=== PATIENT | female | born 1945 | race Caucasian/White ===

== ENCOUNTER → 2020-03-30 | Outpatient (CLI) | payer MEDICARE ==
--- NOTE | 2020-03-31 14:00 | ECHOF ---
Referral Reason:R06.02 SOB MEASUREMENTS -------- HEIGHT: 166.4 cm WEIGHT: 59.0 kg BP: 116/59 RVIDd: 2.9 cm (< 3.3) IVSd: 1.0 cm (0.6 - 1.1) LVIDd: 4.4 cm (3.9 - 5.3) LVPWd: 0.9 cm (0.6 - 1.1) IVSs: 1.3 cm LVIDs: 2.8 cm LVPWs: 1.3 cm LA Diam: 3.0 cm (2.7 - 3.8) Ao Diam: 2.9 cm (2.0 - 3.7) AV Cusp: 1.0 cm (1.5 - 2.6) MV EXCURSION: 10.022 mm (> 18.000) MV EF SLOPE: 29 mm/s (70 - 150) EPSS: 0.9 cm MV E Anderson: 0.83 m/s MV DecT: 298 ms MV A Anderson: 1.01 m/s MV E/A Ratio: 0.82 AV maxP.72 mmHg AV meanP.13 mmHg FINDINGS -------- This was a technically adequate study. The left ventricular size is normal. Left ventricular wall thickness is normal. Overall left vent ricular systolic function is normal with, an EF between 60 - 65 %. The right ventricle is normal in size. The left atrial size is normal. The right atrium is normal in size. Interatrial and interventricular septum intact. There is mild aortic valve sclerosis. Peak/mean gradient across the Aortic Valve is 13.72mmHg / 8.1 3mmHg. The mitral valve leaflets are mildly thickened. Mild mitral annular calcification present. The tricuspid valve appears structurally normal. There is no pulmonic regurgitation present. The aortic root size is normal. Normal inferior vena cava with normal inspiratory collapse consistent with estimated right atrial pre ssure of 5 mmHg. There is no pericardial effusion. CONCLUSIONS -------- 1. This was a technically adequate study. 2. The left ventricular size is normal. 3. Left ventricular wall thickness is normal. 4. Overall left ventricular systolic function is normal with, an EF between 60 - 65 %. 5. The right ventricle is normal in size. 6. The left atrial size is normal. 7. The right atrium is normal in size. 8. Interatrial and interventricular septum intact. 9. There is mild aortic valve sclerosis. 10. Peak/mean gradient across the Aortic Valve is 13.72mmHg / 8.13mmHg. 11. The mitral valve leaflets are mildly thickened. 12. Mild mitral annular calcification present. 13. The tricuspid valve appears structurally normal. 14. There is no pulmonic regurgitation present. 15. The aortic root size is normal. 16. Normal inferior vena cava with normal inspiratory collapse consistent with estimated right atrial pressure of 5 mmHg. 17. There is no pericardial effusion. JIG BUILDER: Amy Castillo RDCS
== END | disposition home or self-care (01) ==
LOC: RADECHMAIN 13:43
PROVIDERS: ATTEND Family Medicine
DX: I35.8 Other nonrheumatic aortic valve disorders (principal)
CPT/HCPCS: 93306

== ENCOUNTER → 2021-05-02 | Outpatient (CLI) | payer MEDICARE ==
--- NOTE | 2021-05-05 14:55 | HM ---
HOLTER MONITOR REPORT Date of 1945. INDICATION: Cardiac arrhythmia REFERRING PHYSICIAN: Dr. Shah. The patient was monitored for 24 hours. The rhythm appeared to be sinus mechanism. Minimum heart rate was 67 beats per minute, max 140 and average of 93 beats per minute. Ventricular ectopic events were and seen in less than 1% of the total beats count. Supraventricular ectopic events were seen also in less than 1% of the total beats count. No significant sinus pause or sinus arrest seen. The patient reported no symptoms. CONCLUSION: 1. Sinus rhythm as a baseline mechanism. 2. Rare ventricular ectopic events. 3. Rare supraventricular ectopic events. 4. No evidence of significant sinus pause or sinus arrest. 5. No diary was attached to the study. MMODL / IJN: [id number] /
== END | disposition home or self-care (01) ==
LOC: RADECHMAIN 11:28
PROVIDERS: ATTEND Family Medicine
DX: I49.9 Cardiac arrhythmia, unspecified (principal)
CPT/HCPCS: 93225; 93226

== ENCOUNTER → 2023-01-03 | Outpatient (CLI) | payer MEDICARE ==
--- NOTE | 2023-01-03 14:15 | P.PAINPG ---
PQRS Measure Charge Sheet Comment: HISTORY OF PRESENT ILLNESS: 77 yr old female as a referral from [facility] presents today w severe and chronic LBP secondary to retrolisthesis, DDD, facet arthropathy without myelopathy for evaluation. Pt states pain level is at 8 /10 in intensity, constant, localized in the mid to lower lumbar spine , sharp, achy in character w shooting pain towards the RLE. Pain is provoked by weight bearing activity. Pain is alleviated by medications (anti-inflammatories), topicals, alternating heat and ice occasionally, chiropractic treatments until 2020 which were stopped due to a shoulder injury, up with therapy 4 times weekly which ended in September 2022 as it exacerbated pain, pilates at home, massages monthly, repositioning and rest. PMH: MDD, Hyperlipidemia, GERD, Glaucoma PSH: Vaginal Hysterctomy w BL Salpingo oophorectomy (2014) SH: Negative x 3 FH: Non contributory All: NKDA Meds: See list REVIEW OF ORGAN SYSTEMS: CONSTITUTIONAL: No fevers or chills. No recent weight loss. NEUROLOGICAL: + numbness and tingling along the distal extremities. No seizure disorders or headaches. MUSCULOSKELETAL: + pain PSYCHIATRIC: Denies current depression or suicidal thoughts. Physical Examinations : Constitutional : Cooperative , not in acute distress . Neurologic : Cranial nerve II to XII intact. No focal neurological deficits. Psychiatric : alert & oriented x 3. Matching mood & appropriate affect. Judgment & insight intact. Musculoskeletal : Cervical Spine Motor strength in the deltoid and biceps: Normal right side. Normal Left side Motor strength biceps and the wrist extensors: Normal right side . Normal left side Motor strength in the triceps muscle: Normal right side. Normal left side Deep tendon reflexes: Normal at the biceps. Normal at Brachioradialis. Normal at triceps Vertebral body tenderness to deep palpation over Cervical facet loading test: positive bilaterally Spurling test: positive bilaterally Neck distraction test: positive bilaterally Kartik sign: positive bilaterally Lumbar spine Motor strength lower extremities ,thigh and legs 5/5 Right side , 5/5 Left side Deep tendon reflexes : Normal Knee Jerk. Normal Ankle Jerk Vertebral body tenderness over L4 Lumbar facet Loading Test: positive Right / positive Left Range of motion of the lumbar spine Flexion 30 degrees, extension 10 degrees Straight Leg Raise test: Left/ Right positive at degree Tone test: positive right / positive left. Severe tenderness over the Sacroiliac joint on the Right / Left sides Gaenslen test: positive bilaterally Seated flexion test: positive bilaterally. Sacral spine : Severe tenderness over the Sacroiliac joint: right side / left side Range of motion: Flexion of the lumbar spine <60 degrees Range of motion: Extension of the lumbar spine <20 degrees Gaenslen's Test positive Brian's Test positive Tone test: positive right side / left side Thigh Thrust Test Sacral Thrust Test Imaging: CT without contrast of the lumbar spine from 12/01/22 reviewed Assessment/ Plan : Lumbar DDD Recommendation of FERNANDO L4-L5. May need a series of injections for optimal pain relief. Risks, benefits of procedure discussed and patient verbalized understanding. Admits to aspirin or anti- coagulant use or medical history of diabetes. Protocol for discontinuation/ continuation of medications ho procedu re discussed. All questions answered. I have spent greater than 30 minutes on patient care today. Dr Regalado was available by phone for the evaluation of this patient. The time was used to review the medical records including relevant urine studies and Prescription history (MAPs), review of the available imaging, evaluation and examination of the patient, coordination of care with the medical staff and if applicable referring physicians, as well as creation of the medical record Home Medications: Ambulatory Orders Felodipine [Felodipine ER] 10 mg PO DAILY 11/03/22 Latanoprost/Pf [Latanoprost 0.005% Eye Drop] 1 drop BOTH EYES HS 11/03/22 Multivitamins, Thera [Multivitamin (formulary)] 1 tab PO DAILY 11/03/22 [place]-3 Fatty Acids [[place]-3] 1,000 mg PO DAILY 11/03/22 Simvastatin [Zocor] 20 mg PO HS 11/03/22 Controlled Substance Measures - Controlled Substance Measures Is patient prescribed a controlled substance at discharge?: No
[2023-01-03 15:30] VITALS: BP 143/86; PULSE 81; RESP 18; TEMP 98
== END ==
LOC: PNWHC3 12:19
PROVIDERS: ATTEND Specialist
DX: M47.26 Other spondylosis with radiculopathy, lumbar region (principal); M51.16 Intervertebral disc disorders with radiculopathy, lumbar region; E78.5 Hyperlipidemia, unspecified; K21.9 Gastro-esophageal reflux disease without esophagitis; F32.9 Major depressive disorder, single episode, unspecified; Z87.891 Personal history of nicotine dependence
CPT/HCPCS: 99211

== ENCOUNTER 2023-01-30 11:33 | Day surgery (SDC) | payer MEDICARE ==
[2023-01-25 11:03] VITALS: BMI 21.6
[~2023-01-30 11:33] MED LIST: LACTATED RINGERS 1,000 ML IV SCH; LIDOCAINE 1% (10MG/ML) FOR IV START INTRADERMA PRN
[2023-01-30 12:18] VITALS: RESP 16; TEMP 98
[2023-01-30] MEDS ORDERED: MIDAZOLAM 2 MG/2 ML VIAL ONE (13:10)
[2023-01-30] MEDS ORDERED: fentaNYL (PF) 50 MCG/ML 2 ML AMP ONE (13:10)
[2023-01-30] MEDS ORDERED: IOPAMIDOL M200 10 ML VIAL ONE (13:10)
[2023-01-30] MEDS ORDERED: methylPREDNISolone ACETATE 40 MG/ML 1 ML VIAL ONE (13:10)
--- NOTE | 2023-01-30 13:22 | P.PCN ---
Date of Procedure: 01/30/23 Procedure(s) Performed: PREOPERATIVE DIAGNOSIS: 1- Lumbar Degenerative Disc Diseases 2-Lumbar spondylosis with Facet arthropathy without myelopathy. 3-lumbar spinal stenosis POSTOPERATIVE DIAGNOSIS: 1-lumbar degenerative disc disease. 2-lumbar spondylosis with facet arthropathy without myelopathy. 3-lumbar spinal stenosis. PROCEDURE 1. Lumbar epidural steroid injection under fluoroscopic guidance at the L4-5 level. (Fluoroscopy imaging was available in radiology department) 2. Lumbar epidurogram. ANESTHESIA: moderate sedation with intravenous Versed 1 mg ,and fentanyle 50 Mcg Sedation start time : 131 Sedation end time : 1318 EBL: Minimal PROCEDURE INDICATION: The patient with low back pain and radiculitis symptoms unresponsive to conservative treatment. Fluoroscopy was used to optimize visualization of the needle placement and to maximize safety. PROCEDURE DESCRIPTION / TECHNIQUE: The patient was seen and identified in the preoperative area. Risks, benefits, complications including but not limited to infections ,bleeding ,allergic reaction to the medications ,nerve damage and not complete pain releife , and alternatives were discussed with the patient. The patient agreed to proceed with the procedure and signed the consent. IV was started, and vital signs were stable. Patient was taken to the OR and time out was completed. The patient was placed in the prone position on procedure table and a pillow was placed under the abdomen to reduce lumbar lordosis. The lumbosacral area was prepped and draped in the usual sterile fashion.ere closely monitored during the procedure. Con scious sedation was used during the procedure to decrease patients anxiety. Vital signs was monitered during the entire procedure. Using anterior-posterior fluoroscopy, the L4-5 interlaminar space was identified and the skin over this site was marked and then infiltrated with 1% lidocaine subcutaneously. Subsequently, a 20-gauge Tuohy epidural needle was inserted and advanced toward the epidural space using the ``Loss of resistance technique and guided by AP and lateral fluoroscopy. The correct needle position in the epidural space was verified with the injection of 2 mL of the water soluble contrast dye Isovue 200 contrast and observing an excellent epidurogram with the epidural spread of the dye, after negative aspiration for blood and CSF and in the absence of paresthesias. Again after negative aspiration, a 6 ml mixture containing 40 mg of Depo-medrol ( Preservetive Free ), and 2 ml of preservative free Normal Saline, and 2 ml of preservative free lidocaine 1% solution was inj ected and a washout of epidurogram was seen. Needle was withdrawn intact, skin was cleansed, and bandages were applied. COMPLICATIONS: None DISPOSITION / PLANS: The patient was placed in a supine position and transferred to the recovery area in a stable condition for observation. There was no evidence of lower extremity motor or sensory deficit after the procedure. Patient was discharged from the recovery room after meeting discharge criteria. Home discharge instructions were given to the patient by the staff. The patient was reexamined prior to discharge. The patient will schedule a follow up in the clinic in 2-4 weeks.
[2023-01-30] MEDS ORDERED: IV FLUID CONTINUATION 800 ML IV ONE (13:31)
--- NOTE | 2023-01-30 13:54 | FL ---
Fluoroscopy History: Fluoroscopy FLUORO 1 SEC. [id number] DAP.
[2023-01-30 13:56] VITALS: BP 141/92; PULSE 87
== END 2023-01-30 14:09 | disposition home or self-care (01) ==
LOC: ORPAIN 11:33
PROVIDERS: ATTEND Specialist
DX: M51.16 Intervertebral disc disorders with radiculopathy, lumbar region (principal); M47.26 Other spondylosis with radiculopathy, lumbar region; M48.061 Spinal stenosis, lumbar region without neurogenic claudication
CPT/HCPCS: 62323

== ENCOUNTER → 2023-02-22 | Outpatient (CLI) | payer MEDICARE ==
[2023-02-22 13:14] VITALS: BP 123/79; PULSE 90; RESP 18
--- NOTE | 2023-02-22 15:21 | P.PAINPG ---
PQRS Measure Charge Sheet Comment: A 77 yr old female with a history of severe and chronic LBP secondary to lumbar DDD and spondylosis with facet arthropathy without myelopathy presents today for evaluation s/p FERNANDO L4-L5. Pt states she experienced 50% pain relief x 2-3 wk s/p procedure. Pain level is provoked at 8/10 in intensity, constant, localized in the lumbar spine, sore in character w shooting towards the RLE. Pain is provoked by standing from a supine position. Pain is alleviated with pilates daily, home exercises daily, massage therapy monthly x 6 mo, chiropractic treatments twice weekly x 2 yrs in 2021, heat, ice, medications, injections in cat past, repositioning and rest. Patient is currently on Ibu, Tyl Patient denies any side effects of the medication(s), denies excessive drowsiness or sleepiness, denies suicidal ideation and reports that the current pain medication is helping to control the pain and improve activities of daily living. Patient denies any motor or sensory deficits. Patient denies any fever or night sweats, denies any change in the bowel movements or urination. Physical Examination: -Constitutional: Cooperative. Not in acute distress . - Neurologic: Cranial nerve II to XII intact. No focal neurological deficits. - Psychatric: Alert & oriented x 3. Matching mood & appropriate affect. Judgment and insight intact. - Musculoskeletal: Cervical spine: Muscle bulk/ tone/ strength in the bilateral upper extremities normal Vertebral body tenderness to palpation over Spurling test positive Distraction test positive Facet loading test positive TTP Thoracic spine Muscle bulk / tone/ strength in the bilateral paraspinal muscles normal Vertebral body tender to palpation over Facet loading test positive TTP Lumbar spine: Motor bulk/ tone/ strength lower extremities , thigh and legs : 5/5 Deep tendon reflexes : Normal Knee Jerk. Normal Ankle Jerk . Vertebral body tenderness to palpation over L4 Heard Test positive Lumbar Facet Loading Test positive Straight Leg Raise: positive at 30 degrees right side/ left side Gaenslen's Test positive Sacral spine : Severe tenderness over the Sacroiliac joint: right side / left side Range of motion: Flexion of the lumbar spine <60 degrees Range of motion: Extension of the lumbar spine <20 degrees Gaenslen's Test positive right side / left side Tone test: positive right side / left side Thigh Thrust Test positive right side / left side Sacral Thrust Test positive right side / left side Assessment and plan: Chronic LBP secondary to lumbar DDD, spondylosis with facet arthropathy without myelopathy Recommendation of R TFESI L4-L5. May need series of injections for optimal pain relief. Risks, benefits of procedure discussed and pt verbalized understanding. Admits to anticoagulant use or medical history of diabetes. Protocol for discontinuation/ continuation of medications ho procedure discussed. Minimal anesthesia provided, if clinically indicated, consisting of Versed and Fentanyl. All questions answered. I have spent less than 30 minutes on patient care today. Dr Regalado was available by phone for the evaluation of this patient. The time was used to review the medical records including relevant urine studies and Prescription history (MAPs), review of the available imaging, evaluation and examination of t he patient, coordination of care with the medical staff and if applicable referring physicians, as well as creation of the medical record PQRS Narrative: Hx Alcohol Use (MH) Yes: 2-3 GLASSES OF WINE PER WEEK Home Medications: Ambulatory Orders Latanoprost/Pf [Latanoprost 0.005% Eye Drop] 1 drop BOTH EYES HS 11/03/22 Multivitamins, Thera [Multivitamin (formulary)] 1 tab PO DAILY 11/03/22 [place]-3 Fatty Acids [[place]-3] 1,000 mg PO DAILY 11/03/22 Simvastatin [Zocor] 20 mg PO HS 11/03/22 Felodipine [Plendil] 10 mg PO DAILY 01/25/23 Controlled Substance Measures - Controlled Substance Measures Is patient prescribed a controlled substance at discharge?: No
== END ==
LOC: PNWHC3 12:41
PROVIDERS: ATTEND Specialist
DX: M51.36 Other intervertebral disc degeneration, lumbar region (principal); G89.29 Other chronic pain; M47.816 Spondylosis without myelopathy or radiculopathy, lumbar region; Z87.891 Personal history of nicotine dependence
CPT/HCPCS: 99211

== ENCOUNTER 2023-03-20 10:24 | Day surgery (SDC) | payer MEDICARE ==
[2023-03-16 10:22] VITALS: BMI 21.6
[2023-03-20 11:13] VITALS: RESP 16; TEMP 97.6
[2023-03-20] MEDS ORDERED: IOPAMIDOL M200 10 ML VIAL ONE (11:55)
[2023-03-20] MEDS ORDERED: methylPREDNISolone ACETATE 80 MG/ML 1 ML VIAL ONE (11:55)
--- NOTE | 2023-03-20 12:02 | P.PCN ---
Date of Procedure: 03/20/23 Procedure(s) Performed: PREOPERATIVE DIAGNOSIS: 1-Lumbar radiculopathy . 2-lumbar degenerative disc disease. 3-lumbar spondylosis with lumbar facet arthropathy without myelopathy POSTOPERATIVE DIAGNOSIS: 1-lumbar radiculopathy. 2-lumbar degenerative disc disease. 3-lumbar spondylosis with facet arthropathy without myelopathy PROCEDURE 1. Transforaminal epidural steroid injection under fluoroscopic guidance at right L4-5 level. (Fluoroscopy images stored on file in the radiology Department ) 2. Lumbar epidurogram . ANESTHESIA: Local with 1% lidocaine 3 ml . EBL: Minimal PROCEDURE INDICATION: The patient with low back pain and radiculopathy symptoms unresponsive to conservative treatment. PROCEDURE DESCRIPTION / TECHNIQUE: The patient was seen and identified in the preoperative area. Risks, benefits, complications, and alternatives were discussed with the patient. The patient agreed to proceed with the procedure and signed the consent. IV was started, and vital signs were stable. Patient was taken to the OR and time out was completed. The patient was placed in the prone position on procedure table and a pillow was placed under the abdomen to reduce lumbar lordosis. The lumbosacral area was prepped and draped in the usual sterile fashion. Critical pause was taken. Vital signs were closely monitored during the procedure.. Using oblique fluoroscopy, the chin of the `KatlinKali dog at Right L4-5 level was identified, and the skin and deeper tissues just below was localized with 1% lidocaine. Subsequently, a 22-gauge 3.5-inch spinal needle was advanced under a tunneled view fluoroscopic guidance just underneath the chin of the `Meredithy dog at the right L4-5 Under lateral fluoroscopy, the needle was then advanced to the posterior border of the interforaminal space. After negative aspiration of CSF and blood and with no paresthesias, 1 mL Isovue 200 contrast dye was injected excellent epidurogram and outlining of the nerve root Subsequently, 3 mL of block solution containing 40 mg Depo-Medrol and 2 mL of 0.9% normal saline PF was injected. Needle was removed . At the end of the procedure, skin was cleansed, and bandages were applied. COMPLICATIONS:none DISPOSITION / PLANS: The patient was placed in a supine position and transferred to the recovery area in a stable condition for observation. There was no evidence of lower extremity motor or sensory deficit after the procedure. Patient was discharged from the recovery room after meeting discharge criteria. Home discharge instructions were given to the patient by the staff. The patient was reexamined prior to discharge.
--- NOTE | 2023-03-20 12:15 | FL ---
Intraoperative/procedural fluoroscopic services were provided for right transforaminal lumbar epidura l injection. Total fluoroscopy time is 4 seconds with a total of 1 submitted image to PACS. Total DAP 0.60939 Gycm2. Please see the operative note for further details.
[2023-03-20 12:22] VITALS: BP 118/78; PULSE 85
== END 2023-03-20 12:24 | disposition home or self-care (01) ==
LOC: ORPAIN 10:24
PROVIDERS: ATTEND Specialist
DX: M51.16 Intervertebral disc disorders with radiculopathy, lumbar region (principal); M47.26 Other spondylosis with radiculopathy, lumbar region
CPT/HCPCS: 64483; J1040; Q9966

== ENCOUNTER → 2023-04-12 | Outpatient (CLI) | payer MEDICARE ==
[2023-04-12 13:17] VITALS: BP 118/77; PULSE 15; RESP 15; TEMP 98
--- NOTE | 2023-04-12 14:43 | P.PAINPG ---
PQRS Measure Charge Sheet Comment: A 77 yr old female with a history of severe and chronic LBP secondary to lumbar DDD and spondylosis with facet arthropathy without myelopathy presents today for evaluation s/p R TFESI L4-L5 #1. Pt states she experienced 90% pain relief x 3 wk s/p procedure. Pain level is provoked at 8/10 in intensity, cons tant, localized in the lumbar spine, sore in character w shooting towards the RLE. Pain is provoked by standing from a supine position. Pain is alleviated with pilates daily, home exercises daily, massage therapy monthly x 6 mo, chiropractic treatments twice weekly x 2 yrs in 2021, ice, medications, injections, repositioning and rest. Interventional procedures include EFRNANDO L4-L5 x1, R TFESI L4-L5 x1 Patient is currently on Ibu, Tyl Patient denies any side effects of the medication(s), denies excessive drowsiness or sleepiness, denies suicidal ideation and reports that the current pain medication is helping to control the pain and improve activities of daily living. Patient denies any motor or sensory deficits. Patient denies any fever or night sweats, denies any change in the bowel movements or urination. Physical Examination: -Constitutional: Cooperative. Not in acute distress . - Neurologic: Cranial nerve II to XII intact. No focal neurological deficits. - Psychatric: Alert & oriented x 3. Matching mood & appropriate affect. Judgment and insight intact. - Musculoskeletal: Cervical spine: Muscle bulk/ tone/ strength in the bilateral upper extremities normal Vertebral body tenderness to palpation over Spurling test positive Distraction test positive Facet loading test positive TTP Thoracic spine Muscle bulk / tone/ strength in the bilateral paraspinal muscles normal Vertebral body tender to palpation over Facet loading test positive TTP Lumbar spine: Motor bulk/ tone/ strength lower extremities , thigh and legs : 5/5 Deep tendon reflexes : Normal Knee Jerk. Normal Ankle Jerk . Vertebral body tenderness Heard Test positive Lumbar Facet Loading Test positive Straight Leg Raise: positive at 30 degrees right side/ left side Gaenslen's Test positive Sacral spine : Severe tenderness over the Sacroiliac joint: right side / left side Range of motion: Flexion of the lumbar spine <60 degrees Range of motion: Extension of the lumbar spine <20 degrees Gaenslen's Test positive right side / left side Tone test: positive right side / left side Thigh Thrust Test positive right side / left side Sacral Thrust Test positive right side / left side Assessment and plan: Chronic LBP secondary to lumbar DDD, spondylosis with facet arthropathy without myelopathy Pt exhibited substantial pain relief s/p procedure and may follow up at the clinic as needed. All questions answered. I have spent less than 30 minutes on patient care today. Dr Regalado was available by phone for the evaluation of this patient. The time was used to review the medical records including relevant urine studies and Prescription history (MAPs), review of the available imaging, evaluation and examination of the patient, coordination of care with the medical staff and if applicable referring physicians, as well as creation of the medical record PQRS Narrative: Hx Alcohol Use (MH) Yes: 2-3 GLASSES OF WINE PER WEEK Home Medications: Ambulatory Orders Latanoprost/Pf [Latanoprost 0.005% Eye Drop] 1 drop BOTH EYES HS 11/03/22 Multivitamins, Thera [Multivitamin (formulary)] 1 tab PO DAILY 11/03/22 [place]-3 Fatty Acids [[place]-3] 1,000 mg PO DAILY 11/03/22 Simvastatin [Zocor] 20 mg PO HS 11/03/22 Felodipine [Plendil] 10 mg PO DAILY 01/25/23 Controlled Substance Measures - Controlled Substance Measures Is patient prescribed a controlled substance at discharge?: No
== END ==
LOC: PNWHC3 12:36
PROVIDERS: ATTEND Specialist
DX: M51.36 Other intervertebral disc degeneration, lumbar region (principal); M47.816 Spondylosis without myelopathy or radiculopathy, lumbar region; G89.29 Other chronic pain; M53.3 Sacrococcygeal disorders, not elsewhere classified; Z87.891 Personal history of nicotine dependence
CPT/HCPCS: 99211

== ENCOUNTER → 2023-06-27 | Outpatient (CLI) | payer MEDICARE ==
--- NOTE | 2023-06-27 14:46 | P.PAINPG ---
PQRS Measure Charge Sheet Comment: A 77 yr old female with a history of severe and chronic LBP secondary to lumbar DDD and spondylosis with facet arthropathy without myelopathy presents today for evaluation. Pain level is provoked at 6/10 in intensity, constant, localized in the lumbar spine, sore in character w shooting towards the LLE. Pa in is provoked by standing from a supine position. Pain is alleviated with pilates daily, home exercises daily, massage therapy monthly x 6 mo, chiropractic treatments twice weekly x 2 yrs in 2021, ice, medications, injections, repositioning and rest. Oswestry axial pain score of 8 Interventional procedures include FERNANDO L4-L5 x1, R TFESI L4-L5 x1 Patient is currently on Ibu, Tyl Patient denies any side effects of the medication(s), denies excessive drowsiness or sleepiness, denies suicidal ideation and reports that the current pain medication is helping to control the pain and improve activities of daily living. Patient denies any motor or sensory deficits. Patient denies any fever or night sweats, denies any change in the bowel movements or urination. Physical Examination: -Constitutional: Cooperative. Not in acute distress . - Neurologic: Cranial nerve II to XII intact. No focal neurological deficits. - Psychatric: Alert & oriented x 3. Matching mood & appropriate affect. Judgment and insight intact. - Musculoskeletal: Cervical spine: Muscle bulk/ tone/ strength in the bilateral upper extremities normal Vertebral body tenderness to palpation over Spurling test positive Distraction test positive Facet loading test positive TTP Thoracic spine Muscle bulk / tone/ strength in the bilateral paraspinal muscles normal Vertebral body tender to palpation over Facet loading test positive TTP Lumbar spine: Motor bulk/ tone/ strength lower extremities , thigh and legs : 5/5 Deep tendon reflexes : Normal Knee Jerk. Normal Ankle Jerk . Vertebral body tenderness L3 Heard Test positive over L3-L4 Lumbar Facet Loading Test positive Straight Leg Raise: positive at 30 degrees right side/ left side Gaenslen's Test positive Sacral spine : Severe tenderness over the Sacroiliac joint: right side / left side Range of motion: Flexion of the lumbar spine <60 degrees Range of motion: Extension of the lumbar spine <20 degrees Gaenslen's Test positive right side / left side Tone test: positive right side / left side Thigh Thrust Test positive right side / left side Sacral Thrust Test positive right side / left side Assessment and plan: Chronic LBP secondary to lumbar DDD, spondylosis with facet arthropathy without myelopathy Recommendation of L TFESI L3-L4. May need a series of injections for optimal pain relief. Risks, benefits of procedure discussed and patient verbalized understanding. Protocol for discontinuation/continuation of medications surrounding procedure discussed. All questions answered. I have spent less than 30 minutes on patient care today. Dr Regalado was available by phone for the evaluation of this patient. The time was used to review the medical records including relevant urine studies and Prescription history (MAPs), review of the available imaging, evaluation and examination of the patient, coordination of care with the medical staff and if applicable referring physicians, as well as creation of the medical record PQRS Narrative: Hx Alcohol Use (MH) Yes: 2-3 GLASSES OF WINE PER WEEK Home Medications: Ambulatory Orders Latanoprost/Pf [Latanoprost 0.005% Eye Drop] 1 drop BOTH EYES HS 11/03/22 Multivitamins, Thera [Multivitamin (formulary)] 1 tab PO DAILY 11/03/22 [place]-3 Fatty Acids [[place]-3] 1,000 mg PO DAILY 11/03/22 Simvastatin [Zocor] 20 mg PO HS 11/03/22 Felodipine [Plendil] 10 mg PO DAILY 01/25/23 Controlled Substance Measures - Controlled Substance Measures Is patient prescribed a controlled substance at discharge?: No
[2023-06-27 14:48] VITALS: BP 124/72; PULSE 89; RESP 15; TEMP 98.2
== END ==
LOC: PNWHC3 13:57
PROVIDERS: ATTEND Specialist
DX: M51.36 Other intervertebral disc degeneration, lumbar region (principal); M47.816 Spondylosis without myelopathy or radiculopathy, lumbar region; G89.29 Other chronic pain; Z87.891 Personal history of nicotine dependence
CPT/HCPCS: 99211

== ENCOUNTER 2023-07-12 07:27 | Day surgery (SDC) | payer MEDICARE ==
[~2023-07-12 07:27] MED LIST changes: -LIDOCAINE 1% (10MG/ML) FOR IV START INTRADERMA PRN
[2023-07-12 08:04] VITALS: RESP 16; TEMP 98.6
[2023-07-12] MEDS ORDERED: DEXAMETHASONE SOD PHOSPHATE 10 MG/ML 1 ML VIAL ONE (08:42)
[2023-07-12] MEDS ORDERED: IOPAMIDOL M200 10 ML VIAL ONE (08:42)
--- NOTE | 2023-07-12 08:53 | P.PCN ---
Date of Procedure: 07/12/23 Surgeon: Mane Quevedo Pathology: none sent Condition: stable Disposition: PACU Description of Procedure: PREOPERATIVE DIAGNOSIS: Lumbar radiculopathy POSTOPERATIVE DIAGNOSIS: Lumbar radiculopathy PROCEDURE 1. Transforaminal epidural steroid injection under fluoroscopic guidance at L3-4 left 2. Lumbar epidurogram. SURGEON: Mane Quevedo MD ANESTHESIA: Local only with 1% lidocaine EBL: Minimal PROCEDURE INDICATION: The patient with low back pain and radiculopathy symptoms unresponsive to conservative treatment. PROCEDURE DESCRIPTION / TECHNIQUE: The patient was seen and identified in the preoperative area. Risks, benefits, complications, and alternatives were discussed with the patient. The patient agreed to proceed with the procedure and signed the consent. IV was started, and vital signs were stable. Patient was taken to the OR and time out was completed. The patient was placed in the prone position on procedure table and a pillow was placed under the abdomen to reduce lumbar lordosis. The lumbosacral area was prepped and draped in the usual sterile fashion. Critical pause was taken. Vital signs were closely monitored during the procedure. Conscious sedation was used during the procedure to decrease patients anxiety. The vertebral body of the lumbar vertebra L3 was squared off by tilting the C-arm cephalad , then the C-arm was tilted to the left oblique position and the target point was at the 6 o'clock position of the pedicle of L3 then skin and deeper tissues were localized with 1% lidocaine. Subsequently, a 22-gauge 3.5-inch spinal needle was advanced under a tunneled view fluoroscopic guidance just underneath the chin of the Kali dog at the . Under lateral fluoroscopy, the needle was then advanced to the middle of the upper one third of the foramen between(L3-4 ). After negative aspiration of CSF and blood and with no paresthesias, 1 mL of omnipaque contrast dye was injected excellent epidurogram and outlining of the L3 nerve root was identified. Subsequently, 2 mL of block solution containing 10 mg of Decadron and 1 mL of Lidocaine 1% PF was injected. Needle was removed intact . At the end of the procedure, skin was cleansed, and bandages were applied. COMPLICATIONS: None DISPOSITION / PLANS: The patient was placed in a supine position and transferred to the recovery area in a stable condition for observation. There was no evidence of lower extremity motor or sensory deficit after the procedure. Patient was discharged from the recovery room after meeting discharge criteria. Home discharge instructions were given to the patient by the staff.
[2023-07-12 09:06] VITALS: BP 127/67; PULSE 97
--- NOTE | 2023-07-12 15:03 | FL ---
EXAMINATION TYPE: FL guided pain mgmt statistic DATE OF EXAM: 07/12/2023 FLUOROSCOPY Transforaminal Inj 14sec fluoro time 0.[address] Quevedo 4 images
== END 2023-07-12 09:15 | disposition home or self-care (01) ==
LOC: ORPAIN 07:27
PROVIDERS: ATTEND Anesthesiology
DX: M54.16 Radiculopathy, lumbar region (principal); I10 Essential (primary) hypertension
CPT/HCPCS: 64483; J1100; Q9966

== ENCOUNTER → 2023-08-02 | Outpatient (CLI) | payer MEDICARE ==
[2023-08-02 09:28] VITALS: BP 115/62; PULSE 72; RESP 15; TEMP 98.6
--- NOTE | 2023-08-02 12:20 | P.PAINPG ---
PQRS Measure Charge Sheet Comment: A 77 yr old female with a history of severe and chronic LBP secondary to lumbar DDD and spondylosis with facet arthropathy without myelopathy presents today for evaluation s/p L TFESI L3-L4 #1. Pt states she experienced 30% pain relief x 3 wks s/p procedure. Pain level is provoked at 5/10 in intensity, co nstant, localized in the lumbar spine, pinching in character w shooting towards the BL lateral thigh up toward the knees. Pain is provoked by standing from a supine position. Pain is alleviated with pilates daily, home exercises daily, massage therapy monthly x 6 mo, chiropractic treatments twice weekly x 2 yrs in 2021, heat, medications, injections, repositioning and rest. Oswestry axial pain score of 9. Interventional procedures include FERNANDO L4-L5 x1, R TFESI L4-L5 x1, L TFESI L3-L4 x1 Patient is currently on Ibu, Tyl Patient denies any side effects of the medication(s), denies excessive shaka wsiness or sleepiness, denies suicidal ideation and reports that the current pain medication is helping to control the pain and improve activities of daily living. Patient denies any motor or sensory deficits. Patient denies any fever or night sweats, denies any change in the bowel movements or urination. Physical Examination: -Constitutional: Cooperative. Not in acute distress . - Neurologic: Cranial nerve II to XII intact. No focal neurological deficits. - Psychatric: Alert & oriented x 3. Matching mood & appropriate affect. Judgment and insight intact. - Musculoskeletal: Cervical spine: Muscle bulk/ tone/ strength in the bilateral upper extremities normal Vertebral body tenderness to palpation over Spurling test positive Distraction test positive Facet loading test positive TTP Thoracic spine Muscle bulk / tone/ strength in the bilateral paraspinal muscles normal Vertebral body tender to palpation over Facet loading test positive TTP Lumbar spine: Motor bulk/ tone/ strength lower extremities , thigh and legs : 5/5 Deep tendon reflexes : Normal Knee Jerk. Normal Ankle Jerk . Vertebral body tenderness L3 Heard Test positive over L3-L4 Lumbar Facet Loading Test positive over BL L3-L4, L4-L5 Straight Leg Raise: positive at 30 degrees right side/ left side Gaenslen's Test positive Sacral spine : Severe tenderness over the Sacroiliac joint: right side / left side Range of motion: Flexion of the lumbar spine <60 degrees Range of motion: Extension of the lumbar spine <20 degrees Gaenslen's Test positive right side / left side Tone test: positive right side / left side Thigh Thrust Test positive right side / left side Sacral Thrust Test positive right side / left side Assessment and plan: Chronic LBP secondary to lumbar DDD, spondylosis with facet arthropathy without myelopathy Recommendation of BL MBB L3-L4, L4-L5 #1. May need a series of injections, up until RFA, for optimal pain relief. Risks, benefits of procedure discussed and patient verbalized understanding. Protocol for discontinuation/continuation of medications surrounding procedure discussed. All questions answered. I have spent less than 30 minutes on patient care today. Dr Regalado was available by phone for the evaluation of this patient. The time was used to review the medical records including relevant urine studies and Prescription history (MAPs), review of the available imaging, evaluation and examination of the patient, coordination of care with the medical staff and if applicable referring physicians, as well as creation of the medical record PQRS Narrative: Hx Alcohol Use (MH) Yes: 2-3 GLASSES OF WINE PER WEEK Home Medications: Ambulatory Orders Latanoprost/Pf [Latanoprost 0.005% Eye Drop] 1 drop BOTH EYES HS 11/03/22 Multivitamins, Thera [Multivitamin (formulary)] 1 tab PO DAILY 11/03/22 [place]-3 Fatty Acids [[place]-3] 1,000 mg PO DAILY 11/03/22 Simvastatin [Zocor] 20 mg PO HS 11/03/22 Felodipine [Plendil] 10 mg PO DAILY 01/25/23 Controlled Substance Measures - Controlled Substance Measures Is patient prescribed a controlled substance at discharge?: No
== END ==
LOC: PNWHC3 08:42
PROVIDERS: ATTEND Specialist
DX: M51.36 Other intervertebral disc degeneration, lumbar region (principal); M47.816 Spondylosis without myelopathy or radiculopathy, lumbar region; G89.29 Other chronic pain; Z87.891 Personal history of nicotine dependence
CPT/HCPCS: 99211

== ENCOUNTER → 2023-08-17 | Day surgery (SDC) | payer MEDICARE ==
[~2023-08-17] MED LIST changes: +IV FLUID CONTINUATION 1,000 ML IV ONE; +LACTATED RINGERS 1,000 ML IV ONE; +MIDAZOLAM 2 MG/2 ML VIAL ONE; +ROPIVACAINE 5MG/ML 20ML VIAL ONE
[2023-08-17 13:18] VITALS: TEMP 98
--- NOTE | 2023-08-17 14:15 | FL ---
Intraoperative/procedural fluoroscopic services were provided for bilateral lumbar facet pain managem ent. Total fluoroscopy time is 43.0 seconds with a total of 4 submitted images to PACS. Total DAP 0.1 2170 mGym2. Please see the operative note for further details.
[2023-08-17 14:28] VITALS: BP 147/84; PULSE 69; RESP 16
--- NOTE | 2023-08-17 15:08 | P.PCN ---
Date of Procedure: 08/17/23 Description of Procedure: PREOPERATIVE DIAGNOSIS : 1- Lumbar spondylosis with Facet Arthropathy without myelopathy . 2- Lumber degenerative disc disease POSTOPERATIVE DIAGNOSIS: 1- Lumbar spondylosis with Facet Arthropathy without myelopathy . 2- Lumber degenerative disc disease PROCEDURE: Diagnostic bilateral L3 , L4 , and L5 medial branch block under fluoroscopy guidance(fluoroscopy images available in the radiology Department ) ( To target the facet joint between Bilateral L4-5 , and L 3-4) ANESTHESIA:, Monitored anesthesia care as per anesthesia department. COMPLICATION: None PROCEDURE INDICATION: Chronic low back pain secondary to Facet arthropathy unresponsive to conservative treatment. PROCEDURE DESCRIPTION: the patient was seen and identified in the preop holding area , risks and benefits and possible complications of the procedure and alternative were discussed with the patient, and the patient agreed to proceed with the procedure and signed the consent and vital signs monitored during the procedure and fluoroscopy was used to maximize the benefit and accuracy of the needle placement, and sedation was given to decrease patient anxiety, patient was taken to the procedure room and placed in prone position vital signs monitored in the back prepped with chlorhexidine X3 then under strict sterile technique using a right oblique fluoroscopy ,the junction of the transverse process and the superior articulating process of the right L3 , L4 , and L5 vertebra which corresponding to the fluoroscopy image of the eye of the Kali dog on the block side for the medial branches and subsequently , after local infiltration of skin and subcu tissuies with 1% lidocaine at each level ,then 22-gauge Quincke-type needles , 3 needle was used , each one of them placed at the junction of the base of the transverse process and the superior articular process at the appropriate level, and the needle was advanced until the periosteum contacted, needle placement confirmed with AP oblique and lateral view and after appropriate needle placement confirmed, and after negative aspiration for heme and CSF and there was no paresthesia 0.5 mL of Ropivacaine 0.5% injected at each level after negative aspiration the needle subsequently removed and the same procedure repeated for the left side at left side at L3 , L4 and L5 levels. At the end of the procedure and the needles removed and a bandage applied after the skin was cleaned the cleaning solution patient taken to recovery room in stable condition and monitors in the recovery room for 20-30 minutes and discharged home in stable condition after discharge criteria met and patient will follow up with the pain clinic in 2-4 weeks
== END ==
LOC: ORPAIN 12:19
PROVIDERS: ATTEND Pain Medicine Interventional Pain Medicine
DX: M51.36 Other intervertebral disc degeneration, lumbar region (principal); M47.816 Spondylosis without myelopathy or radiculopathy, lumbar region; I10 Essential (primary) hypertension; E78.5 Hyperlipidemia, unspecified; Z79.899 Other long term (current) drug therapy
CPT/HCPCS: 64493; 64494 ×2; J2250; J2001; J2795

== ENCOUNTER → 2023-09-11 | Outpatient (CLI) | payer MEDICARE ==
--- NOTE | 2023-09-11 10:25 | P.PAINPG ---
Objective - Vital Signs Vital signs: Intake & Output 09/10/23 09/11/23 09/11/23 18:59 06:59 18:59 Weight 58.513 kg PQRS Measure Charge Sheet Comment: A 77 yr old female with a history of severe and chronic LBP secondary to lumbar DDD and spondylosis with facet arthropathy without myelopathy presents today for evaluation s/p BL MBB L2-L4 #1. Pt states she experienced 70% pain relief x 5 hrs s/p procedure. Pain level is provoked at 7/10 in intensity, constant, localized in the L lower lumbar spine, pinching in character w shooting towards the L buttock and hip. Pain is provoked by sitting for periods of 30 min or more. Pain is alleviated with pilates daily, home exercises daily, massage therapy monthly x 6 mo, chiropractic treatments twice weekly x 2 yrs in 2021, heat, medications, injections, repositioning and rest. Oswestry axial pain score of 8. Interventional procedures include FERNANDO L4-L5 x1, R TFESI L4-L5 x1, L TFESI L3-L4 x1, BL MBB L2-L4 x1 Patient is currently on Ibu, Tyl Patient denies any side effects of the medication(s), denies excessive drowsiness or sleepiness, denies suicidal ideation and reports that the current pain medication is helping to control the pain and improve activities of daily living. Patient denies any motor or sensory deficits. Patient denies any fever or night sweats, denies any change in the bowel movements or urination. Physical Examination: -Constitutional: Cooperative. Not in acute distress . - Neurologic: Cranial nerve II to XII intact. No focal neurological deficits. - Psychatric: Alert & oriented x 3. Matching mood & appropriate affect. Judgment and insight intact. - Musculoskeletal: Cervical spine: Muscle bulk/ tone/ strength in the bilateral upper extremities normal Vertebral body tenderness to palpation over Spurling test positive Distraction test positive Facet loading test positive TTP Thoracic spine Muscle bulk / tone/ strength in the bilateral paraspinal muscles normal Vertebral body tender to palpation over Facet loading test positive TTP Lumbar spine: Motor bulk/ tone/ strength lower extremities , thigh and legs : 5/5 Deep tendon reflexes : Normal Knee Jerk. Normal Ankle Jerk . Vertebral body tenderness L3 Heard Test positive over L3-L4 Lumbar Facet Loading Test positive Straight Leg Raise: positive at 30 degrees right side/ left side Gaenslen's Test positive Sacral spine : Severe tenderness over the Sacroiliac joint: right side / left side Range of motion: Flexion of the lumbar spine <60 degrees Range of motion: Extension of the lumbar spine <20 degrees Gaenslen's Test positive right side / left side Tone test: positive right side / left side Thigh Thrust Test positive right side / left side Sacral Thrust Test positive right side / left side Assessment and plan: Chronic LBP secondary to lumbar DDD, spondylosis with facet arthropathy without myelopathy Recommendation of L SI injection #1. May need a series of injections for optimal pain relief. Risks, benefits of procedure discussed and patient verbalized understanding. Protocol for discontinuation/continuation of medications surrounding procedure discussed. All questions answered. I have spent less than 30 minutes on patient care today. Dr Regalado was available by phone for the evaluation of this patient. The time was used to review the medical records including relevant urine studies and Prescription history (MAPs), review of the available imaging, evaluation and examination of the patient, coordination of care with the medical staff and if applicable referring physicians, as well as creation of the medical record PQRS Narrative: Hx Alcohol Use (MH) Yes: 2-3 GLASSES OF WINE PER WEEK Home Medications: Ambulatory Orders Latanoprost/Pf [Latanoprost 0.005% Eye Drop] 1 drop BOTH EYES HS 11/03/22 Multivitamins, Thera [Multivitamin (formulary)] 1 tab PO Q48H 11/03/22 [place]-3 Fatty Acids [[place]-3] 1,000 mg PO DAILY 11/03/22 Simvastatin [Zocor] 20 mg PO HS 11/03/22 Felodipine [Plendil] 10 mg PO DAILY 01/25/23 Controlled Substance Measures - Controlled Substance Measures Is patient prescribed a controlled substance at discharge?: No
[2023-09-11 10:38] VITALS: BP 138/100; PULSE 66; RESP 16; TEMP 97.8
== END ==
LOC: PNWHC3 09:50
PROVIDERS: ATTEND Specialist
DX: M51.36 Other intervertebral disc degeneration, lumbar region (principal); M47.816 Spondylosis without myelopathy or radiculopathy, lumbar region; G89.29 Other chronic pain; Z87.891 Personal history of nicotine dependence
CPT/HCPCS: 99211

== ENCOUNTER → 2023-09-27 | Day surgery (SDC) | payer MEDICARE ==
[~2023-09-27] MED LIST changes: -IV FLUID CONTINUATION 1,000 ML IV ONE; -LACTATED RINGERS 1,000 ML IV ONE; -MIDAZOLAM 2 MG/2 ML VIAL ONE
[2023-09-27 14:42] VITALS: TEMP 98.2
--- NOTE | 2023-09-27 15:56 | P.PCN ---
Description of Procedure: Preprocedure diagnosis. Sacroiliac joint arthropathy. Postprocedure diagnosis. As above. Procedure done. left sacroiliac joint injection with local anesthetics and steroid under fluoroscopic guidance. Anesthesia. Local anesthetic infiltration. Continuous EKG, pulse ox, blood pressure, and verbal communication was maintained with the patient in OR. Blood loss. Minimal. Indication. Sacroiliac joint arthropathy. Discussed the procedure, alternatives, complications which may include infection,bleeding, nerve damage, aggravation of pain which could be permanent. Patient understands and questions were answered. Procedure note. After getting consent patient in OR in prone position. Back prepped with chlorhexidine and draped in sterile manner. After injecting 10 mL of 1% lidocaine subcutaneously, a 22-gauge spinal needle was introduced under tunnel vision of the fluoroscope in the lower and posterior one third of left sacroiliac joint. After needle position confirmation by AP and crosstable lateral view, After repeat negative aspiration, 2.5 mL solution was injected which consists of 1.5 ml of 0.5% Ropivacaine mixed with 1 mL of 40 mg Depo- Medrol. After the procedure needles were taken out. Bandage applied. Disposition. Patient tolerated the procedure well. No complication. Patient was discharged home in stable condition. While talking to patient today regarding last diagnostic medial branch block, patient relates that she got almost 80% improvement and the improvement lasted more than 2 days. It could be considered positive diagnostic injection. Heart Injection could be second diagnostic lumbar facet injection and if that is positive patient is very enthusiastic to have radiofrequency ablation done.
[2023-09-27 15:57] VITALS: RESP 12
[2023-09-27 16:20] VITALS: BP 129/75; PULSE 98
--- NOTE | 2023-09-27 16:31 | FL ---
EXAMINATION TYPE: FL guided pain mgmt statistic Intraoperative/procedural fluoroscopic services were provided. Total fluoroscopy time is 15 seconds with a total of 2 submitted images to PACS. Please see the operative/procedural note for further details. DAP: 0.54792 Gycm2
== END ==
LOC: ORPAIN 12:39
PROVIDERS: ATTEND Pain Medicine Interventional Pain Medicine
DX: M46.1 Sacroiliitis, not elsewhere classified (principal)
CPT/HCPCS: J2795; G0260; 27096

== ENCOUNTER → 2023-10-24 | Outpatient (CLI) | payer MEDICARE ==
[2023-10-24 10:25] VITALS: BP 135/85; PULSE 76; RESP 16; TEMP 97.1
--- NOTE | 2023-10-24 14:33 | P.PAINPG ---
PQRS Measure Charge Sheet Comment: A 77 yr old female with a history of severe and chronic LBP secondary to lumbar DDD and spondylosis with facet arthropathy without myelopathy presents today for evaluation s/p L SI injection #1. Pt states she experienced 100 % pain relief x 4 days s/p procedure. Pain level is provoked at 9/10 in intensity, constant, localized in the lower lumbar spine, pinching in character w shooting towards the BL buttocks and hips. Pain is provoked by sitting for periods of 30 min or more. Pain is alleviated with pilates daily, home exercises daily, massage therapy monthly x 6 mo, chiropractic treatments twice weekly x 2 yrs in 2021, heat, medications, injections, repositioning and rest. Oswestry axial pain score of 8. Interventional procedures include FERNANDO L4-L5 x1, R TFESI L4-L5 x1, L TFESI L3-L4 x1, BL MBB L2-L4 x1, L SI injection x1 Patient is currently on Ibu, Tyl Patient denies any side effects of the medication(s), denies excessive drowsiness or sleepiness, denies suicidal ideation and reports that the current pain medication is helping to control the pain and improve activities of daily living. Patient denies any motor or sensory deficits. Patient denies any fever or night sweats, denies any change in the bowel movements or urination. Physical Examination: -Constitutional: Cooperative. Not in acute distress . - Neurologic: Cranial nerve II to XII intact. No focal neurological deficits. - Psychatric: Alert & oriented x 3. Matching mood & appropriate affect. Judgment and insight intact. - Musculoskeletal: Cervical spine: Muscle bulk/ tone/ strength in the bilateral upper extremities normal Vertebral body tenderness to palpation over Spurling test positive Distraction test positive Facet loading test positive TTP Thoracic spine Muscle bulk / tone/ strength in the bilateral paraspinal muscles normal Vertebral body tender to palpation over Facet loading test positive TTP Lumbar spine: Motor bulk/ tone/ strength lower extremities , thigh and legs : 5/5 Deep tendon reflexes : Normal Knee Jerk. Normal Ankle Jerk . Vertebral body tenderness L3 Heard Test positive over L3-L4 Lumbar Facet Loading Test positive Straight Leg Raise: positive at 30 degrees right side/ left side Gaenslen's Test positive Sacral spine : Severe tenderness over the Sacroiliac joint: right side / left side Range of motion: Flexion of the lumbar spine <60 degrees Range of motion: Extension of the lumbar spine <20 degrees Gaenslen's Test positive right side / left side Tone test: positive right side / left side Thigh Thrust Test positive right side / left side Sacral Thrust Test positive right side / left side Assessment and plan: Chronic LBP secondary to lumbar DDD, spondylosis with facet arthropathy without myelopathy Recommendation of diagnostic BL SI injection #2. May need a series of injections for optimal pain relief. Risks, benefits of procedure discussed and patient verbalized understanding. Protocol for discontinuation/continuation of medications surrounding procedure discussed. Will also follow up w Dr Correa to explore additional treatment options. All questions answered. I have spent less than 30 minutes on patient care today. Dr Regalado was available by phone for the evaluation of this patient. The time was used to review the medical records including relevant urine studies and Prescription history (MAPs), review of the available imaging, evaluation and examination of the patient, coordination of care with the medical staff and if applicable referring physicians, as well as creation of the medical record PQRS Narrative: Hx Alcohol Use (MH) Yes: 2-3 GLASSES OF WINE PER WEEK Home Medications: Ambulatory Orders Latanoprost/Pf [Latanoprost 0.005% Eye Drop] 1 drop BOTH EYES HS 11/03/22 Multivitamins, Thera [Multivitamin (formulary)] 1 tab PO Q48H 11/03/22 [place]-3 Fatty Acids [[place]-3] 1,000 mg PO DAILY 11/03/22 Simvastatin [Zocor] 20 mg PO HS 11/03/22 Felodipine [Plendil] 10 mg PO DAILY 01/25/23 Controlled Substance Measures - Controlled Substance Measures Is patient prescribed a controlled substance at discharge?: No
== END ==
LOC: PNWHC3 09:39
PROVIDERS: ATTEND Specialist
DX: M51.36 Other intervertebral disc degeneration, lumbar region (principal); M47.816 Spondylosis without myelopathy or radiculopathy, lumbar region; G89.29 Other chronic pain; Z87.891 Personal history of nicotine dependence
CPT/HCPCS: 99211

== ENCOUNTER 2023-11-15 11:46 | Day surgery (SDC) | payer MEDICARE ==
[~2023-11-15 11:46] MED LIST changes: -ROPIVACAINE 5MG/ML 20ML VIAL ONE
[2023-11-15] MEDS ORDERED: ROPIVACAINE 5MG/ML 20ML VIAL ONE (13:04)
[2023-11-15] MEDS ORDERED: methylPREDNISolone ACETATE 80 MG/ML 1 ML VIAL ONE (13:04)
[2023-11-15] MEDS ORDERED: IOPAMIDOL M200 10 ML VIAL ONE (13:04)
--- NOTE | 2023-11-15 13:33 | P.PCN ---
Date of Procedure: 11/15/23 Procedure(s) Performed: Procedure= bilateral sacroiliac joints steroid injection under fluoroscopy guidance (fluoroscopy image stored on file in the radiology Department ) Preoperative diagnosis= 1-sacroiliitis 2-lumbar degenerative disc disease 3- lumbar facet arthropathy 4-lumbar spinal stenosis Postoperative diagnosis=Same as preop Diagnosis . Complication = none Condition= stable Anesthesia= local anesthesia with ropivacaine 0.5% 4 ml only Indication for the procedure= patient complaining of low back pain , examination was positive for severe tenderness over the sacroiliac joints bilaterally and patient diagnosed with sacroiliitis, for this reason she was good candidate for sacroiliac joint steroid injection. Description of the procedure= procedure risk and benefits discussed with the patient, including but not limited, risk of infection and bleeding, and ALLERGIC reaction to the medication and not complete pain relief and patient agreed with the preceding patient taken to the operating room, placed in prone position or standard monitors applied to the patient then after induction of anesthesia back prepped with chlorhexidine 3 times , Then under strict sterile technique, first I did the right sacroiliac joint the which was identified under fluoroscopy guidance been local infiltration of the skin and subcu interstitial with lidocaine 1% then 22-gauge Quincke Needle advanced slowly under fluoroscopy and placed in the right sacroiliac joint needle placement confirmed with AP and oblique and lateral view, then after that Isovue 200 one mL injected which confirmed the correct needle placement with the appropriate arthrogram of the sacroiliac joint, and after appropriate needle placement confirmed and after negative aspiration, or heme , then Ropivacaine 0.5% 2 mL, and 20 mg of Depo-Medrol mixed together and injected in the right sacroiliac joint after negative aspiration patient tolerated the procedure well without any complication. Then the left sacroiliac joint steroid injection done under strict sterile technique local infiltration of the skin and subcu interstitial at the location of the left sacroiliac joint then a 22-gauge Quincke Needle advanced slowly under fluoroscopy time placed in the left sacroiliac joint, needle placement confirmed with AP and oblique and lateral view then after appropriate needle placement confirmed, with the AP and oblique and lateral then after negative aspiration Isovue 200 1 mL injected showed arthropathy of the left sacroiliac joint, and after negative aspiration 0.5% Ropivacaine 2 mL and 20 mg of Depo- Medrol injected in the left sacroiliac joint after negative aspiration patient tolerated the procedure well that any complications and she will follow up in clinic 3 weeks
[2023-11-15 13:34] VITALS: TEMP 97
[2023-11-15 14:05] VITALS: BP 107/64; PULSE 80; RESP 14
--- NOTE | 2023-11-15 14:31 | FL ---
Fluoroscopy History: SI JOINT SI joint inj with Al Priya. 9.2 fluoro time. .[id number] DAP. 3 images saved.
== END 2023-11-15 13:51 | disposition home or self-care (01) ==
LOC: ORPAIN 11:46
PROVIDERS: ATTEND Specialist
DX: M46.1 Sacroiliitis, not elsewhere classified (principal); M51.36 Other intervertebral disc degeneration, lumbar region; M48.061 Spinal stenosis, lumbar region without neurogenic claudication
CPT/HCPCS: J1040; Q9966; J2795; G0260

== ENCOUNTER → 2023-12-12 | Outpatient (CLI) | payer MEDICARE ==
[2023-12-12 10:28] VITALS: BP 128/66; PULSE 73; RESP 15; TEMP 98.7
--- NOTE | 2023-12-12 13:57 | P.PAINPG ---
PQRS Measure Charge Sheet Comment: A 77 yr old female with a history of severe and chronic LBP secondary to lumbar DDD and spondylosis with facet arthropathy without myelopathy, BL Sacroiliitis presents today for evaluation s/p BL SI injection #2. Pt states she experienced 70 % pain relief x 4 wks s/p procedure. Pain level is provoked at 3/10 in intensity, constant, localized in the lower lumbar spine, pinching in character w shooting towards the BL buttocks and hips. Pain is provoked by sitting for periods of 30 min or more. Pain is alleviated with pilates daily, home exercises daily, massage therapy monthly x 6 mo, chiropractic treatments twice weekly x 2 yrs in 2021, heat, medications, injections, repositioning and rest. Oswestry axial pain score of 6. Interventional procedures include FERNANDO L4-L5 x1, R TFESI L4-L5 x1, L TFESI L3-L4 x1, BL MBB L2-L4 x1, L SI injection x1, BL SI x1 Patient is currently on Ibu, Tyl, THC patch Patient denies any side effects of the medication(s), denies excessive drowsiness or sleepiness, denies suicidal ideation and reports that the current pain medication is helping to control the pain and improve activities of daily living. Patient denies any motor or sensory deficits. Patient denies any fever or night sweats, denies any change in the bowel movements or urination. Physical Examination: -Constitutional: Cooperative. Not in acute distress . - Neurologic: Cranial nerve II to XII intact. No focal neurological deficits. - Psychatric: Alert & oriented x 3. Matching mood & appropriate affect. Judgment and insight intact. - Musculoskeletal: Cervical spine: Muscle bulk/ tone/ strength in the bilateral upper extremities normal Vertebral body tenderness to palpation over Spurling test positive Distraction test positive Facet loading test positive TTP Thoracic spine Muscle bulk / tone/ strength in the bilateral paraspinal muscles normal Vertebral body tender to palpation over Facet loading test positive TTP Lumbar spine: Motor bulk/ tone/ strength lower extremities , thigh and legs : 5/5 Deep tendon reflexes : Normal Knee Jerk. Normal Ankle Jerk . Vertebral body tenderness L3 Heard Test positive over L3-L4 Lumbar Facet Loading Test positive Straight Leg Raise: positive at 30 degrees right side/ left side Gaenslen's Test positive Sacral spine : Severe tenderness over the Sacroiliac joint: right side / left side Range of motion: Flexion of the lumbar spine <60 degrees Range of motion: Extension of the lumbar spine <20 degrees Gaenslen's Test positive right side / left side Tone test: positive right side / left side Thigh Thrust Test positive right side / left side Sacral Thrust Test positive right side / left side Assessment and plan: Chronic LBP secondary to lumbar DDD, spondylosis with facet arthropathy without myelopathy, BL Sacroiliitis Will manage residual pain and may RTC on an as needed basis. Will also follow up w Dr Correa to explore additional treatment options. All questions answered. I have spent less than 30 minutes on patient care today. Dr Regalado was available by phone for the evaluation of this patient. The time was used to review the medical records including relevant urine studies and Prescription history (MAPs), review of the available imaging, evaluation and examination of the patient, coordination of care with the medical staff and if applicable referring physicians, as well as creation of the medical record PQRS Narrative: Hx Alcohol Use (MH) Yes: 2-3 GLASSES OF WINE PER WEEK Home Medications: Ambulatory Orders Latanoprost/Pf [Latanoprost 0.005% Eye Drop] 1 drop BOTH EYES HS 11/03/22 Multivitamins, Thera [Multivitamin (formulary)] 1 tab PO Q48H 11/03/22 [place]-3 Fatty Acids [[place]-3] 1,000 mg PO DAILY 11/03/22 Simvastatin [Zocor] 20 mg PO HS 11/03/22 Felodipine [Plendil] 10 mg PO DAILY 01/25/23 Controlled Substance Measures - Controlled Substance Measures Is patient prescribed a controlled substance at discharge?: No
== END ==
LOC: PNWHC3 09:50
PROVIDERS: ATTEND Specialist
DX: M46.1 Sacroiliitis, not elsewhere classified (principal); M47.816 Spondylosis without myelopathy or radiculopathy, lumbar region; M51.36 Other intervertebral disc degeneration, lumbar region; M54.50 Low back pain, unspecified; Z87.891 Personal history of nicotine dependence
CPT/HCPCS: 99211

== ENCOUNTER → 2024-02-18 | Outpatient (CLI) | payer MEDICARE ==
[2024-02-18 10:19] VITALS: BP 132/68; PULSE 73; RESP 15; TEMP 97.2
--- NOTE | 2024-02-18 14:56 | P.PAINPG ---
PQRS Measure Charge Sheet Comment: A 78 yr old female with a history of severe and chronic LBP secondary to lumbar DDD and spondylosis with facet arthropathy without myelopathy, BL Sacroiliitis presents today for evaluation. Pain level is provoked at 3/10 in intensity, constant, localized in the lower lumbar spine, pinching in character w shooting towards the BL buttocks and hips. Pain is provoked by sitting for periods of 30 min or more. Pain is alleviated with pilates daily, home exercises daily, massage therapy monthly x 6 mo, chiropractic treatments twice weekly x 2 yrs in 2021, heat, medications, injections, repositioning and rest. Oswestry axial pain score of 9. Interventional procedures include FERNANDO L4-L5 x1, R TFESI L4-L5 x1, L TFESI L3-L4 x1, BL MBB L2-L4 x1, L SI injection x1, BL SI x1 Patient is currently on Ibu, Tyl, THC patch Patient denies any side effects of the medication(s), denies excessive drowsiness or sleepiness, denies suicidal ideation and reports that the current pain medication is helping to control the pain and improve activities of daily living. Patient denies any motor or sensory deficits. Patient denies any fever or night sweats, denies any change in the bowel movements or urination. Physical Examination: -Constitutional: Cooperative. Not in acute distress . - Neurologic: Cranial nerve II to XII intact. No focal neurological deficits. - Psychatric: Alert & oriented x 3. Matching mood & appropriate affect. Judgment and insight intact. - Musculoskeletal: Cervical spine: Muscle bulk/ tone/ strength in the bilateral upper extremities normal Vertebral body tenderness to palpation over Spurling test positive Distraction test positive Facet loading test positive TTP Thoracic spine Muscle bulk / tone/ strength in the bilateral paraspinal muscles normal Vertebral body tender to palpation over Facet loading test positive TTP Lumbar spine: Motor bulk/ tone/ strength lower extremities , thigh and legs : 5/5 Deep tendon reflexes : Normal Knee Jerk. Normal Ankle Jerk . Vertebral body tenderness L4 Heard Test positive over L4-L5 L> R Lumbar Facet Loading Test positive Straight Leg Raise: positive at 30 degrees right side/ left side Gaenslen's Test positive Sacral spine : Severe tenderness over the Sacroiliac joint: right side / left side Range of motion: Flexion of the lumbar spine <60 degrees Range of motion: Extension of the lumbar spine <20 degrees Gaenslen's Test positive right side / left side Tone test: positive right side / left side Thigh Thrust Test positive right side / left side Sacral Thrust Test positive right side / left side Assessment and plan: Chronic LBP secondary to lumbar DDD, spondylosis with facet arthropathy without myelopathy, BL Sacroiliitis Recommendation of FERNANDO L4-L5 #1. May need a series f injections for optimal pain relief. Risks, benefits of procedure discussed and pt verbalized understanding. All questions answered. I have spent less than 30 minutes on patient care today. Dr Regalado was available by phone for the evaluation of this patient. The time was used to review the medical records including relevant urine studies and Prescription history (MAPs), review of the available imaging, evaluation and examination of the patient, coordination of care with the medical staff and if applicable referring physicians, as well as creation of the medical record PQRS Narrative: Hx Alcohol Use (MH) Yes: 2-3 GLASSES OF WINE PER WEEK Home Medications: Ambulatory Orders Latanoprost/Pf [Latanoprost 0.005% Eye Drop] 1 drop BOTH EYES HS 11/03/22 Multivitamins, Thera [Multivitamin (formulary)] 1 tab PO Q48H 11/03/[address] [place]-3 Fatty Acids [[place]-3] 1,000 mg PO DAILY 11/03/22 Simvastatin [Zocor] 20 mg PO HS 11/03/22 Felodipine [Plendil] 10 mg PO DAILY 01/25/23 Controlled Substance Measures - Controlled Substance Measures Is patient prescribed a controlled substance at discharge?: No
== END ==
LOC: PNWHC3 09:35
PROVIDERS: ATTEND Specialist
DX: M46.1 Sacroiliitis, not elsewhere classified (principal); M51.36 Other intervertebral disc degeneration, lumbar region; M47.816 Spondylosis without myelopathy or radiculopathy, lumbar region; G89.29 Other chronic pain; Z87.891 Personal history of nicotine dependence
CPT/HCPCS: 99211

== ENCOUNTER → 2024-04-16 | Outpatient (CLI) | payer MEDICARE | END | disposition home or self-care (01) | LOC: LABPAT 15:13 | PROVIDERS: ATTEND Orthopaedic Surgery | DX: Z01.812 Encounter for preprocedural laboratory examination (principal); M48.061 Spinal stenosis, lumbar region without neurogenic claudication; M47.26 Other spondylosis with radiculopathy, lumbar region; Z22.322 Carrier or suspected carrier of Methicillin resistant Staphylococcus aureus | CPT/HCPCS: 86850; 86900; 86901; 87070 ==

== ENCOUNTER 2024-04-25 10:27 | Day surgery (SDC) | payer MEDICARE ==
[2024-04-21 15:06] VITALS: BMI 21.4
--- NOTE | 2024-04-25 07:51 | P.HPOR ---
History of Present Illness H&P Date: 04/25/24 .T:Title: [facility] HISTORY AND PHYSICAL Age: 78 year Height: 5'5" Weight: 131 lbs BMI: 21.80 kg/m2 Occupation: Retired VAS: 8 CC: Re-check on low back pain HISTORY: Ms. Mckeon presents to the office today, 02/25/24, for re-evaluation of low back pain. She previously trialed x2 lumbar facet blocks with the last one c ompleted on 08/17/2023 with about 0% relief for 1 to 2 days. She also trialed x2 left SI joint injections, with the last on in office on 11/15/2023 with about 80% relief for 12 to 24 hours following both injections. The patient reports experiencing a burning, throbbing pain throughout the low back that radiates down into the posterior and lateral aspects of the left leg from the lateral hip down into the foot. The patient states her left leg pain is associated with numbness and tingling. She notes progressive left leg weakness. She states her symptoms worsen after all activity. Se reports experiencing severe sleep disturbances related to her ongoing pain and associated symptoms. She notes her symptoms prohibit her from completing any of her daily tasks. The patient has trialed several injections at pain management and in office, all with significant, temporary relief. She has also trialed all conservative measures listed below with only mild, temporary relief. She is currently taking Motrin for relief of her current symptoms. Otherwise, the patient denies any f/c/sob/cp, perineal numbness or tingling, bowel or bladder incontinence/retention. Patient is ambulatory independently. The patients' past social, medical, family, surgical history, as well as review of systems, have been reviewed. Please refer to the Neurosurgery History and Physical form that has been scanned into our electronic medical record system. 16 points review of systems completed and as stated in HPI, all other systems reviewed are negative. PAST TREATMENTS: PAST IMAGING: - Yes TRAUMA RELATED: - No WORK RELATED: - No PT IN LAST 6 MONTHS: - Yes; no relief PHYSICIAN DIRECTED HOME EXERCISE PROGRAM: - Yes; no relief ACTIVITY MODIFICATION: - Yes MEDICATIONS: - Motrin ALTERNATIVE INTERVENTIONS (CHIROPRACTIC, ACUPUNCTURE, MASSAGE, RICE): - Yes (home heat/ice therapies and rest); mild, temporary relief BRACING: - No INJECTIONS (FERNANDO, TF, RFA): -Yes (facet blocks / last on 08/17/2023) How many? 1-2 - Left SI joint injections in office (11/15/2023 & 10/04/2023) Did they help? Yes, mild temporary relief from all injections (12-24 hours of 80-90% relief) RFA:No MEDICAL HISTORY: Past Medical History: Reviewed, see appropriate section of the chart for details. Past Spine Surgical History: None Social History: Reviewed, see appropriate section of the chart for details. Family History: Reviewed, see appropriate section of the chart for details. Current Medications: P1Rx: felodipine ER 10 mg tablet,extended release 24 hr Ref: 0 Rx: latanoprost 0.005 % eye drops Ref: 0 Rx: simvastatin 20 mg tablet Ref: 0 Rx: Motrin Ref: 0 Rx: Vitamin D3 Ref: 0 P1 PHYSICAL EXAM: General: AOX3, NAD, Well hydrate, Well nourished HEENT: No lumps or masses Extremities: No color changes, no pooling INTEGUMENT: Appearance:Normal color and turgor Surgical Incisions: None Hairy Patches: ABSENT Dorsal Skin Dimples: Normal [employer] spots: ABSENT PALPATION: TTP Midline:NO Paracervical:NO Parathoracic: NO Paralumbar:YES SIJ TESTING: TTP (NONE) [place] Finger:- FABER4:- Compression: - | Distraction:- Thigh thrust: - | Hip thrust: - POSTURAL BALANCE: Coronal:BALANCED Sagittal:BALANCED Shoulder height: LEVEL Pelvic Girdle: LEVEL ROM AND APPEARANCE: Neck:UNRESTRICTED Lumbar:RESTRICTED Shoulders: Symmetrical Hips: Symmetrical Knees: Symmetrical Hands: Symmetrical Feet: Symmetrical VASCULAR STATUS: RUE- 2 LUE-2 RLE-2 LLE-2 Edema: NONE NEUROLOGICAL EXAMINATION: Mental Status: Awake, alert, oriented fully with normal attention, concentration and memory. Fluent appropriate speech. CRANIAL NERVES: I: Olfactory not tested. II: Visual acuity normal, no visual field deficit noted with confrontation. III,IV: Normal pupillary reflexes & intact extraocular movements without nystagmus. V,: Intact symmetrical facial sensation. VII: Intact symmetrical facial motor movementVIII: Hearing intact. IX,X: Intact gag, swallow, & normal voice. XI: Sternocleidomastoid, trapezius function intact. XII: Tongue midline with normal movements. TENSIONING: L'HERMITTE'S SIGN NEG SPURLUNG'S SIGN NEG CUBITAL COMPRESSION NEG TINELS AT WRIST NEG SLR/CROSSED SLR POS LEFT MOTOR EXAM (0-5/5, NT) Muscle appearance:Symmetrical, without signs of atrophy or dystrophy UPPER EXTREMITY RIGHT LEFT Shoulder Abduction 5 5 Biceps 5 5 Triceps 5 5 Wrist Extension 5 5 Hand Intrnsics 4+ 5 Hearing Aid Mechanic 5 5 LOWER EXTREMITY RIGHT LEFT Hip Flexion 4+ 5 Knee Extension 5 5 Knee Flexion 4+ 5 Dorsiflexion 5 5 Plantarflexion 5 4+ EHL 5 4+ FHL 5 5 REFLEXES (0-4/2, NT): RIGHT LEFT Bicep 2 2 Brachioradialis 2 2 Tricep 2 1 Patellar 1 2 Achilles 1 2 PATHOLOGICAL REFLEXES: RIGHT LEFT PIONN'S ABSENT ABSENT CLONUS ABSENT ABSENT BABINSKI ABSENT ABSENT Rectal Tone: INTACT SENSATION (0-4, NT): RUE-2LUE-2 RLE-1 LLE-1 Dermatomal deficit: L2-L4 paresthesias with decreased LT sensation GAIT AND FUNCTIONAL EVALUATION: -Ambulatory aids - INDEPENDENT -Rombergs test - NEG -Hand and finger dexterity intact bilaterally? YES -Dysdiadochokinesia examination negative bilaterally? YES -Toe heel walk / heel-toe walk intact while maintaining satisfactory balance? YES -Squatting/straightening w/o assistance to a min of 60 degree knee flexion? YES -Single leg stance: ABLE -Trendelenburg sign NEGATIVE B/L IMAGING STUDIES FINDINGS XR, CT MRI All re-reviewed with pt today. My findings in previous notes. L2-4 SPondylosis with stenosis severe as well as retrolisthesis L2-5. IMPRESSION: It was my pleasure to have seen and examined Justyna. I reviewed the patient's clinical syndrome, physical findings, and imaging studies during the appointment today. It is my impression that the patient has a diagnosis of. 1. 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 Grade 1 retrolithesis L2-L3, L3-L4, L4-L5 3. Left lower extremity radiculopathy 4. Left lower extremity weakness PLAN: THERAPIES -Cont with ice as warranted -Cont with supplementation Vit D, Vit C, Ca2+, High protein diet -OK for massage or other alternative treatment modalities as able. If it exacerbates your sx do not continue ACTIVITY -Avoid excessive or heavy BLPPT MEDICATIONS -Take as directed -Cont home medications as directed by your PCP. Check with your PCP for any medication interactions or issues if needed. SURGICAL RECOMMENDATION - Left-sided L3-5 MIS laminoforaminotomy DISCUSSION: -I have discussed both operative versus non-operative treatment with the patient in office today. I have recommended surgical intervention in the form of a left- sided L3-5 MIS laminoforaminotomy secondary to her symptomatic L2-4 spondylosis with stenosis and worsening left lower extremity radiculopathy and weakness. The patient verbally understands all risks, benefits, and alternatives to the procedure and elects to proceed. Spine Surgery Risk Review Ms. Mckeon is presenting for evaluation of low back and left lower extremity pain, left lower extremity numbness, tingling, and weakness. It was my pleasure to have seen and examined Ms. Mckeon. In our visit today we have had a chance to go over subjective complaints, physical examination findings and treatments including the natural course history without intervention and various interventional options. The [facility] imaging [facility] -Re-reviewed with the patient today. 1. L1-2: 2 to 3 mm broad-based disc herniation effaces the ventral surface of the thecal sac without evidence of central canal or limiting foraminal stenosis. 2. L2-3: Grade 1 retrolisthesis is seen. Accompanying 5 to 6 mm broad-based disc herniation effaces the ventral surface of the thecal sac resulting in mild left neural foraminal encroachment left exiting L2 nerve impingement in conjunction with facet arthrosis. 3. L3-4: Grade 1 retrolisthesis is seen resulting in moderate to severe bilateral neuroforaminal encroachment, right greater than left, and bilateral exiting L3 nerve impingement in conjunction with facet arthrosis. Moderate canal stenosis is seen. 4. L4-5: Grade 1 retrolisthesis is seen. Accompanying 4 to 5 mm broad-based disc herniation effaces the ventral surface of the thecal sac resulting in moderate bilateral neuroforaminal encroachment and bilateral exiting L4 nerve im pingement in conjunction with facet arthrosis. 5. L5-S1: 1 to 2 mm broad-based disc herniation effaces the ventral surface of the thecal sac without evidence of central canal or limiting foraminal stenosis. Facet arthrosis is seen. CT [facility]: -Re-reviewed with the patient today. IMPRESSION: 1. Large broad-based disc bulging L3-4 L4-5 with greater extension into the left lateral directions. Correlate with left radicular symptoms. 2. Additional milder disc bulging present at L2-3. 3. Grade 1 retrolisthesis of L3 posteriorly on L4 and L4 posterior on L5. XRay Lumbar Multiview (AP, Lateral, Flexion, Extension) with AP pelvis; 5 views taken at [facility] on 10/23/22: -Re-reviewed with the patient today. Severe multilevel degenerative changes with hyperlordosis of the lumbar spine. Multilevel diminished disc height. Grade 1 retrolisthesis L2 onto L3, L3 onto L4, L4 onto L5. No acute osseous abnormalities. On physical exam, Ms. Mckeon demonstrates: A burning, throbbing pain throughout the low back that radiates down into the posterior and lateral aspects of the left leg from the lateral hip down into the foot. The patient states her left leg pain is associated with numbness and tingling. She notes progressive left leg weakness. She states her symptoms worsen after all activity. Se reports experiencing severe sleep disturbances related to her ongoing pain and associated symptoms. She notes her symptoms prohibit her from completing any of her daily tasks. I have explained to the patient that as their condition progresses it will cause further neurological deficits and eventual paralysis. Based on the patients imaging, physical exam, and the rapid progression and disabling nature of their symptoms, at this time I recommend surgery in the form of a: Left-sided L3-5 MIS laminoforaminotomy. I discussed the risk and benefits of this procedure at length with Ms. Mckeon. The patient agreed to considered pursuing the procedure abovementioned. Prior to surgery, she should follow up with her PCP (Cardio, ID, IM etc) for clearance. Questions were invited and answered, and the patient wishes to proceed as outlined below. Currently, I am recommendin.Left-sided L3-5 MIS laminoforaminotomy 2.Follow up with PCP for surgical clearance 3.Review of surgical risks and benefits as well as an educational packet on the proposed surgical procedure. Risks: All surgical procedures come with inherent risks, including those related to positioning, anesthesia, intraoperative findings, and postoperative complications. It is important to understand that surgery does not come with any guarantee of a successful outcome as complications and adverse events are always possible. The patient was given a handout in office today discussing the surgical procedure and risks associated with the intervention, both of which were discussed with the patient. These risks include but are not limited to the following: * Experiencing same, different or even worse symptoms in back, neck, arms, or legs compared to before surgery. Requiring further surgery or other forms of treatment presently or at some time in the future at same or other levels of the intended spine surgery. On an extreme but fortunately relatively rare basis severe complication such as blindness, stroke, heart attack, temporary and/or permanent nerve injury, paralysis, coma, or may occur, sometimes without known explanation. Surgical complications may include but are not limited to risk of infection, fluid accumulation in the surgical dissection site, including a seroma or hematoma, that requires additional surgery, wound drainage, bleeding, new numbness or weakness, vision changes/loss, spinal fluid leakage, non-healing and/or infected incision, headaches, difficulty or inability to swallow, hoarseness, hemopneumothorax, pneumothorax, impotence, retrograde ejaculation, vaginal dryness; injury to nerves, spinal cord, blood vessels, lymphatics or oth er vital organs (i.e., bowel injury, injury to the great vessels); heterotopic bone formation; complications related to the hardware such as screws, rods, cages including misplaced hardware, device failure, instrumentation at the wrong spine level, hardware fracture/breakage, or hardware loosening; vertebral failure of the spinal column above or below the newly placed hardware; retained surgical instrumentations or devices and the need for further surgery. * Medical risks of the planned spine surgery include but are not limited to generalized Infections to the whole body or local areas outside of the surgical site (sepsis), heart attack, bleeding, anaphylaxis, meningitis, seizure, epilepsy, hearing loss, burn lipscomb, laceration of the head or other areas of the body, bruising, hypersensitivity of the skin, bladder over distension; allergic reaction; shoulder injury related to positioning; fat, blood and air clots to other areas of the body like heart, lungs, brain; failure of internal organs such as lungs, kidneys, liver and excessive bleeding. If blood transfusions are necessary, note that transfusions may cause intolerance reactions such as anaphylaxis or other complex reactions. Despite best efforts, the results of spine surgery might not heal in terms of bone, soft tissues such as skin, fascia, ligaments, and joints. Additionally, in order to achieve best possible results, spine surgery may be carried out beyond the initially planned levels and involve decompression, fusion including insertion of hardware at levels other than the original intended area of surgical interest change some portions of the procedure in order to ensure the best possible outcomes. With spine surgery and spinal fusion, there are different off label uses of instrumentation (devices, implants and hardware) as well as biological substances (bone morphogenic proteins, demineralized bone matrix) as well as using extra bone from allograft sources (i.e. cadaver bone) or autograft (iliac crest bone, ribs, or the spine itself). The patient has been given information about these practices and their inherent risks and benefits. [facility] is an educational center that serves as a training facility for neurosurgical and orthopedic PROGRAM ASSISTANT and Nursing students. Physician assistants are medically trained surgical providers who function in the outpatient, inpatient, and operating room setting under the direct supervision of the attending surgeon. [facility] has multiple operating rooms with single and overlapping rooms running daily. They currently function under the required guidelines as produced by the [facility] Finance Committee with regards to the overlapping rooms and will continue to comply with changes to this policy as they occur. The requirements include and are complied with as follows: (1) the critical portions of the overlapping rooms will not occur at the same time, (2) the attending physician will be physically present during the critical portions of the procedure and immediately available during the entire case, and (3) a back-up attending is designated should the primary attending not be immediately available. The patient has had a chance to review all the listed information, has been given print outs detailing this information, and has had all his/her questions answered to their satisfaction. It was my pleasure to have seen and examined Ms. Mckeon. In our visit today we have had a chance to go over my understanding of our patient's current condition, the natural course history without intervention and various interventional options. Questions were invited and answered, and the patient wishes to proceed as outlined above. I have seen and examined the patient for 25 minutes and we have spent more than 50% of the time in repeat and detailed counseling about the patient's condition, its natural course history with out and as much as can be predicted with surgery and re-review of various surgical treatment options. In conclusion, Ms. Mckeon requested we proceed with the above suggested surgery and are willing to accept risks and limitations of the suggested surgery as nature of the disease process and our best attempts at treatment for the condition. Thank you again for allowing us to be part of your patient's care. Please don't hesitate to contact me if you have any further questions. Signed and authenticated by: [employer] P:\\\\ppart\\\\[id number]\\\\[id number] \\[id number]\\\\[id number]\\\\ [id number].PNG \\d Ralph Lunaaren [facility] [address] [place] [address] FOLLOW UP: Preoperative Evaluation (1 week prior to scheduled surgery) PATIENT EDUCATION: Medications Reviewed: YES In our visit today Ms. Mckeon and I have had a chance to go over my understanding of the patient's current condition, the natural course history without intervention and various interventional options. Questions were invited and answered, and the patient wishes to proceed as outlined above. I will be sure to keep you updated after Ms. Mckeon returns here for further follow-up. Thank you again for your referral. Please do not hesitate to contact me if you have any further questions. Signed and authenticated by: Ralph Barakat [facility] [address] [place], [place] [id number] This message is confidential, intended only for the named recipient(s) and may contain information that is privileged or exempt from disclosure under applicable law. If you are not the intended recipient(s), you are notified that the dissemination, distribution or copying of this information is strictly prohibited. If you received this message in error, please notify the sender then delete this message. # SIGNED BY Ralph Correa (GOO)03/05/2024 07:12AM Past Medical History Past Medical History: Cancer, Eye Disorder, Hyperlipidemia, Hypertension, Osteoarthritis (OA) Additional Past Medical History / Comment(s): Right BREAST CANCER- NO B/P right arm, degenerative disc disease, back pain/arthritis, glaucoma. History of Any Multi-Drug Resistant Organisms: None Reported Past Surgical History: Bladder Surgery, Breast Surgery, Hysterectomy, Orthopedic Surgery Additional Past Surgical History / Comment(s): 11/17/14 Vaginal hysterectomy, bilateral salpingoophorectomy, repair cystocele and rectocele, FOOT SURGERY, DOUBLE MASTECTOMY. Past Anesthesia/Blood Transfusion Reactions: No Reported Reaction Additional Past Anesthesia/Blood Transfusion Reaction / Comment(s): Pt has never had a blood transfusion. Smoking Status: Former smoker - Past Family History Father Family Medical History: Coronary Artery Disease (CAD), Hypertension Mother Family Medical History: No Reported History Medications and Allergies Home Medications Medication Instructions Recorded Confirmed Type Latanoprost/Pf [Latanoprost 0.005% 1 drop BOTH EYES HS 11/03/22 04/21/24 History Eye Drop] Multivitamins, Thera [Multivitamin 1 tab PO Q48H 11/03/22 04/21/24 History (formulary)] Simvastatin [Zocor] 20 mg PO DAILY 11/03/22 04/21/24 History Felodipine [Plendil] 10 mg PO DAILY 01/25/23 04/21/24 History Allergies Allergy/AdvReac Type Severity Reaction Status Date / Time No Known Allergies Allergy Verified 04/21/24 14:51 Physical Examination Osteopathic Statement: *. No significant issues noted on an osteopathic structural exam other than those noted in the History and Physical/Consult. Assessment and Plan (1) Lumbar stenosis with neurogenic claudication Status: Acute Code(s): M48.062 - SPINAL STENOSIS, LUMBAR REGION WITH NEUROGENIC CLAUDICATION SNOMED Code(s): 17955058 (2) Lumbar back pain with radiculopathy affecting lower extremity Status: Acute Code(s): M54.16 - RADICULOPATHY, LUMBAR REGION SNOMED Code(s): 415303000
[~2024-04-25 10:27] MED LIST changes: +HYDROmorphone 0.5 MG/0.5 ML SYRINGE IVP PRN; -LACTATED RINGERS 1,000 ML IV SCH; +LIDOCAINE 1% (10MG/ML) FOR IV START INTRADERMA PRN; +ONDANSETRON 4 MG/2 ML VIAL IVP PRN; +TRANEXAMIC 1,000 MG/100ML-NACL 1,000 MG in SALINE 1 100ML.BAG IVPB PRN
[2024-04-25] MEDS: LACTATED RINGERS 1,000 ML IV SCH (11:26)
[2024-04-25] MEDS: IV FLUID CONTINUATION 1,000 ML IV ONE ×2 (11:27)
[2024-04-25] MEDS: ACETAMINOPHEN TAB 500 MG TAB PO PRN (11:35)
[2024-04-25] MEDS: GABAPENTIN 300 MG CAP PO PRN (11:35)
[2024-04-25] MEDS: MIDAZOLAM 2 MG/2 ML VIAL IV PRN (11:37)
[2024-04-25] MEDS: ONDANSETRON 4 MG/2 ML VIAL IVP ONE (11:37)
[2024-04-25] MEDS: DEXAMETHASONE SOD PHOSPHATE 4 MG/ML 1 ML VIAL IV ONE (11:37)
[2024-04-25 11:47] VITALS: RESP 16
[2024-04-25] MEDS ORDERED: SUGAMMADEX SODIUM 200 MG/2 ML SDV IV ONE (12:35)
[2024-04-25] MEDS ORDERED: KETOROLAC 15 MG/ML 1 ML VIAL ONE (12:35)
[2024-04-25] MEDS ORDERED: fentaNYL (PF) 50 MCG/ML 2 ML AMP ONE (12:35)
[2024-04-25] MEDS ORDERED: ROCURONIUM 10 MG/ML (5 ML VIAL) IV ONE (12:35)
[2024-04-25] MEDS ORDERED: PHENYLEPHRINE-0.9% NACL SYG 1,000 MCG/10 ML SYRINGE ONE (12:35)
[2024-04-25] MEDS ORDERED: TRANEXAMIC 1,000 MG/100ML-NACL PREMIX BAG ONE (12:35)
[2024-04-25] MEDS ORDERED: SUCCINYLCHOLINE CHLORIDE 200 MG/10 ML VIAL IV ONE (12:35)
[2024-04-25] MEDS ORDERED: MIDAZOLAM 2 MG/2 ML VIAL ONE (12:35)
[2024-04-25] MEDS ORDERED: LIDOCAINE 1% INJ 10MG/ML (20 ML MDV) ONE (12:35)
[2024-04-25] MEDS ORDERED: PROPOFOL 10 MG/ML 20 ML VIAL IV ONE (12:35)
[2024-04-25] MEDS ORDERED: PHENYLEPHRINE 10 MG/ML VIAL ONE (12:35)
[2024-04-25] MEDS: BUPIVACAINE (PF) 0.5% 30 ML VIAL SQ ONE (13:13)
[2024-04-25] MEDS: LIDOCAINE 2%-EPI 1:100,000 20 ML VIAL SQ ONE (13:13)
[2024-04-25] MEDS: THROMBIN (BOVINE) 5,000 UNIT VIAL TOPICAL ONE (13:13)
[2024-04-25 15:39] VITALS: TEMP 98.1
--- NOTE | 2024-04-25 15:50 | FL ---
EXAMINATION TYPE: FL guidance operating room, XR lumbar spine 2 or 3V Intraoperative/procedural fluor oscopic services were provided. Total fluoroscopy time is 31.2 seconds with a total of 6 submitted im ages to PACS. Please see the operative/procedural note for further details. DAP: 4.3416 Gycm2
--- NOTE | 2024-04-25 16:38 | P.OP ---
Date of Procedure: 04/25/24 Preoperative Diagnosis: Current Active Problems Lumbar stenosis with neurogenic claudication (Acute) Lumbar back pain with radiculopathy affecting lower extremity (Acute) Postoperative Diagnosis: Current Active Problems Lumbar stenosis with neurogenic claudication (Acute) Lumbar back pain with radiculopathy affecting lower extremity (Acute) Procedure(s) Performed: 1. L3-4 LAMINOFORAMINOTOMY WITH MICRODISCECOMTY 2. L4-5 LAMINOFORAMINOTOMY WITH MICRODISCECOMTY USE OF IO MICROSCOPE LEFT Implants: NONE Anesthesia: GETA Surgeon: Ralph Correa Environmental Conflict Manager #1: Vannesa Tellez (WAS PRESENT AND ASSISTED WITH ALL ASPECTS OF THE CASE FROM POSITION TO DRESSING PLACEMENT) Estimated Blood Loss (ml): 25 IV fluids (ml): 1,100 Urine output (ml): 0 Pathology: none sent Condition: stable Disposition: PACU Indications for Procedure: Ms. Mckeon is presenting for evaluation of low back and left lower extremity pain, left lower extremity numbness, tingling, and weakness. It was my pleasure to have seen and examined Ms. Mckeon. In our visit today we have had a chance to go over subjective complaints, physical examination findings and treatments including the natural course history without intervention and various interventional options. The patients imaging demonstrates[facility]: -Re-reviewed with the patient today. 1. L1-2: 2 to 3 mm broad-based disc herniation effaces the ventral surface of the thecal sac without evidence of central canal or limiting foraminal stenosis. 2. L2-3: Grade 1 retrolisthesis is seen. Accompanying 5 to 6 mm broad-based disc herniation effaces the ventral surface of the thecal sac resulting in mild left neural foraminal encroachment left exiting L2 nerve impingement in conjunction with facet arthrosis. 3. L3-4: Grade 1 retrolisthesis is seen resulting in moderate to severe bilateral neuroforaminal encroachment, right greater than left, and bilateral exiting L3 nerve impingement in conjunction with facet arthrosis. Moderate canal stenosis is seen. 4. L4-5: Grade 1 retrolisthesis is seen. Accompanying 4 to 5 mm broad-based disc herniation effaces the ventral surface of the thecal sac resulting in moderate bilateral neuroforaminal encroachment and bilateral exiting L4 nerve impingement in conjunction with facet arthrosis. 5. L5-S1: 1 to 2 mm broad-based disc herniation effaces the ventral surface of the thecal sac without evidence of central canal or limiting foraminal stenosis. Facet arthrosis is seen. CT [facility] 12/01[facility]22 [facility]: -Re-reviewed with the patient today. IMPRESSION: 1. Large broad-based disc bulging L3-4 L4-5 with greater extension into the left lateral directions. Correlate with left radicular symptoms. 2. Additional milder disc bulging present at L2-3. 3. Grade 1 retrolisthesis of L3 posteriorly on L4 and L4 posterior on L5. XRay Lumbar Multiview (AP, Lateral, Flexion, Extension) with AP pelvis; 5 views taken at [facility] on 10/23/22: -Re-reviewed with the patient today. Severe multilevel degenerative changes with hyperlordosis of the lumbar spine. Multilevel diminished disc height. Grade 1 retrolisthesis L2 onto L3, L3 onto L4, L4 onto L5. No acute osseous abnormalities. On physical exam, Ms. Mckeon demonstrates: A burning, throbbing pain throughout the low back that radiates down into the posterior and lateral aspects of the left leg from the lateral hip down into the foot. The patient states her left leg pain is associated with numbness and tingling. She notes progressive left leg weakness. She states her symptoms worsen after all activity. Se reports experiencing severe sleep disturbances related to her ongoing pain and associated symptoms. She notes her symptoms prohibit her from completing any of her daily tasks. I have explained to the patient that as their condition progresses it will cause further neurological deficits and eventual paralysis. Based on the patients imaging, physical exam, and the rapid progression and disabling nature of their symptoms, at this time I recommend surgery in the form of a: Left-sided L3-5 MIS laminoforaminotomy. I discussed the risk and benefits of this procedure at length with Ms. Mckeon. The patient agreed to considered pursuing the procedure abovementioned. Prior to surgery, she should follow up with her PCP (Cardio, ID, IM etc) for clearance. Questions were invited and answered, and the patient wishes to proceed as outlined below. Currently, I am recommendin.Left-sided L3-5 MIS laminoforaminotomy Description of Procedure: L3-5 (left) laminoforaminotomy with microdisc The patient was seen and examined in the preoperative area. All preoperative protocols were followed. Informed consent was obtained, risks and benefits of the procedure were discussed at length. Risks including bleeding infection damage to the surrounding tissue and risk of re-operation were discussed with the patient. Risk of anesthesia up to and including was discussed with the patient. These are outlined in the risk review. They were willing to accept these risks and all the risks of surgery. The patient was given a weight-based dose of antibiotics in the form of 2 g Ancef. The patient was seen and evaluated by the anesthesia team who deemed them fit for surgery. The site was marked, the patient was willing to proceed with the procedure. The patient was transferred to the operative suite by the Department of anesthesia. They were then drifted off to sleep by the department anesthesia and GETA was performed. The patient tolerated this well. Once confirmation of lines and ventilation the patient was transferred to a prone Brad table very carefully. All bony prominences including wrists, elbows, axilla, chest, hips, and thighs, and feet were padded very well. Special attention was paid to the genitalia, and these were padded accordingly. SCDs were placed on bilateral lower extremities and were connected. Arms were well padded and placed on arm boards up and out in the 90/90 position. Once in position, again we confirmed good ventilation capabilities and that lines were running appropriately. The patients Lumbar spine was then exposed. 1010s were placed outlining the incision site. Standard alcohol was used to clean the incision site and allowed to dry. C-arm was used to needle localize the pedicles at L4-5 and bio-felipe the patient and confirm level for incision which was marked with a skin marker. Operative briefing was performed with all teams and everyone in agreement to proceed. The patient was then prepped and draped in a normal sterile fashion. Timeout was then performed, and all parties agreed with the procedure to be performed. Skin incision was made over the previously marked area and initial dilator for tubular retractor system was placed under AP and Lateral imaging. Once in position sequential dilation was done up to 26 mm tube and a 60 mm tube was selected and placed and secured to the table. Microscope was then brought in for visualization. Dave-laminotomy, partial medial facetectomy and foraminotomy were performed at L3-4 using high speed lori and Kerrison rongure. The ligamentum flavum was removed with Kerrison and curette. Dura and roots protected. The disc space was identified along with the herniation. 11 blade was used to make small annulotomy and micro-pituitary used to remove loose disc fragments. Once fragments were removed, down biting curette was used to push any medial fragments down and towards the annulotomy and decompress centrally. The disc space was irrigated, and any loose fragments removed again. Bipolar was used for hemostasis and scarring of the annulotomy. The area was irrigated, and meticulous hemostasis performed. Attention was then drawn to the L4-5 region on the left. Dave-laminotomy, partial medial facetectomy and foraminotomy were performed at L4-5 using high speed lori and Kerrison rongure. The ligamentum flavum was removed with Kerrison and curette. The disc space was identified, no large herniation seen at this level and so the decompression was cleaned up and the bone edges waxed at all levels. Meticulous hemostasis was performed. The bed was inspected, and all roots have ample room and are decompressed along with the dura. There were no injuries. Retractors were then removed. The wound was copiously irrigated with NSS. The deep fascia was closed with 0 PDS. Deep sub-q with 0 Vicryl and superficial with 2-0 Vicryl. Subcuticular was closed with 3-0 stratafix. The wound edges approximated well. The wound was then cleaned, and glue tape placed on the skin and allowed to dry. It was then Covered with an Opifoam dressing. The patient was then transferred off the table back to their hospital bed a- traumatically. They were extubated by the department of anesthesia. They were then transferred to PACU in stable condition having tolerated the procedure with no complications.
[2024-04-25 17:18] VITALS: BP 119/82; PULSE 72
== END 2024-04-25 17:57 | disposition home or self-care (01) ==
LOC: OR 10:27
PROVIDERS: ATTEND Orthopaedic Surgery
DX: M48.062 Spinal stenosis, lumbar region with neurogenic claudication (principal); M43.16 Spondylolisthesis, lumbar region; G47.9 Sleep disorder, unspecified; H40.9 Unspecified glaucoma; C50.911 Malignant neoplasm of unspecified site of right female breast; E78.5 Hyperlipidemia, unspecified; I10 Essential (primary) hypertension; Z90.710 Acquired absence of both cervix and uterus; Z90.722 Acquired absence of ovaries, bilateral; Z90.13 Acquired absence of bilateral breasts and nipples; Z87.891 Personal history of nicotine dependence; Z82.49 Family history of ischemic heart disease and other diseases of the circulatory system; Z98.1 Arthrodesis status; Z79.02 Long term (current) use of antithrombotics/antiplatelets; Z79.83 Long term (current) use of bisphosphonates
CPT/HCPCS: 72100; 63030; 63035; J2250; J0330; J1100; J0690; J2405; J2001; J3010; J1885; J2704; J2371 ×2; J0665

== ENCOUNTER → 2024-08-28 | Outpatient (CLI) | payer MEDICARE ==
--- NOTE | 2024-08-28 12:55 | CT ---
EXAMINATION TYPE: CT lumbar spine wo con CT DLP: 443.80 mGycm, Automated exposure control for dose reduction was used. DATE OF EXAM: 08/28/2024 12:43 PM COMPARISON: Lumbar spine radiographs 04/25/2024, CT lumbar spine 12/01/2022. CLINICAL INDICATION:Female, 78 years old with history of M54.50 LUMBAR PAIN; PHH, Recent back sx, fel l several weeks ago, c/o pain. TECHNIQUE: Multiple axial images were obtained from the midportion of T11 through the sacroiliac indy nts. Soft tissue and bone windows in coronal and sagittal planes were obtained and reviewed. Contrast used: none. Oral contrast used: none. FINDINGS: Alignment: There are 5 lumbar type vertebral bodies. Similar mild retrolisthesis of L1 on L2, L2 on L 3, L3 on L4, and L4 on L5. Bone: No evidence of acute fracture is identified. Postsurgical changes with left-sided laminectomie s at L4-L5. Incomplete fusion of the posterior arch of 11. Discs: T12-L1: No spinal canal or neural foraminal stenosis is identified. L1-L2: Broad-based disc bulge with minimal effacement of the intrathecal sac. No significant neural f oraminal stenosis. L2-L3: Retrolisthesis with broad-based disc bulge resulting in mild central canal stenosis. Bilateral facet arthropathy. No significant neural foraminal stenosis. L3-L4: Retrolisthesis with broad base disc bulge resulting in mild central canal stenosis. Bilateral facet arthropathy. Moderate bilateral neural foraminal stenosis. L4-L5: Retrolisthesis with broad-based disc bulge resulting in mild effacement of the anterior thecal sac. Bilateral facet arthropathy with moderate bilateral neural foraminal stenosis. L5-S1: Broad-based disc bulge with minimal effacement of the anterior thecal sac. Minimal left neura l foraminal narrowing. The left neural foramen is patent. Other: Small hiatal hernia. Left renal cysts measuring up to 3.2 cm redemonstrated. Nonobstructive ri ght renal calculi with largest measuring up to 5 mm. Colonic diverticulosis without visualized acute diverticulitis. Atherosclerotic calcification of the aorta and its branches. Tortuosity of the abdomi nal aorta. IMPRESSION: 1. No evidence for acute spinal fracture. 2. Postsurgical changes with left-sided laminectomy L4-L5. 3. Moderate multilevel degenerative disc disease and facet arthropathy as described above. 4. Similar mild retrolisthesis of L1 on L2, L2 on L3, L3 on L4, and L4 on L5. 5. Nonobstructive right renal calculi. [facility], , 08/28/2024 12:53 PM
== END | disposition home or self-care (01) ==
LOC: RADCTMAIN 11:33
PROVIDERS: ATTEND Orthopaedic Surgery
DX: M51.360 Other intervertebral disc degeneration, lumbar region with discogenic back pain only (principal); M43.16 Spondylolisthesis, lumbar region; N20.0 Calculus of kidney; Z98.890 Other specified postprocedural states
CPT/HCPCS: 72131